=== PATIENT | female | born 1940 | race Caucasian/White ===

== ENCOUNTER 2023-05-01 21:54 | Inpatient (IN) | payer OTHER, SELFPAY ==
[2023-05-01] VITALS (7 sets, daily range): BP systolic 99–153; BP diastolic 58–108
[2023-05-01 13:17] LABS: % Basophils 0.4 % (0-2); % Immature Granulocytes 0.9 % (0-0.5); % Lymphocytes 6.9 % (20.5-51.1); % Monocytes 4.4 % (1.7-9.3); % Neutrophils 87.4 % (42.2-75.2); Absolute Basophils 0.1 10^3/uL (0-0.2); Absolute Immature Granulocytes 0.2 10^3/uL (0-0.05); Absolute Lymphocytes 1.5 10^3/uL (1.2-3.4); Absolute Neutrophils 18.9 10^3/uL (1.4-6.5); Hematocrit 28.3 % (37.0-47.0); Hemoglobin 9.7 g/dL (12.0-16.0); Mean Corp Hgb Conc. 34.3 g/dL (33.0-37.0); Mean Corpuscular Hgb 28.1 pg (27.0-31.0); Mean Platelet Volume 9.8 fL (7.4-10.4); Nucleated Red Blood Cells % 0 %; Platelet Count 449 10^3/uL (130-400); Red Blood Cell Count 3.45 10^6/uL (4.20-5.40); Red Cell Dist. Width 15.2 % (11.5-14.5); White Blood Cell Count 21.6 10^3/uL (4.8-10.8)
[2023-05-01 13:32] LABS: COVID-19 Antigen Negative (Negative)
[2023-05-01 13:42] LABS: Troponin I < 0.012 ng/ml
[2023-05-01 14:00] LABS: ALT (SGPT) 107 U/L (0-35); AST (SGOT) 207 U/L (14-36); Albumin 2.6 g/dl (3.5-5.0); Alkaline Phosphatase 336 U/L (38-126); Blood Urea Nitrogen 35 mg/dl (7-17); Calcium 8.2 mg/dl (8.4-10.2); Carbon Dioxide 19 mmol/L (22-30); Chloride 100 mmol/L (98-107); Glucose 157 mg/dl (70-99); Potassium 4.4 mmol/L (3.5-5.1); Sodium 128 mmol/L (135-145); Total Protein 5.8 g/dl (6.3-8.2); eGFR 45.19
--- NOTE | 2023-05-01 16:04 | ED.GENMED ---
History of Present Illness
General
Chief Complaint: Weakness
Source: patient
Time Seen by Provider: 05/01/23 15:32
Travel History
Have you had any contact with someone who has COVID-19?: No
Do you have any symptoms of coronavirus? Fever > 100 degrees, chills, cough, shortness of breath, sore throat, loss of taste or smell, muscle aches, or headache?: No
History of Present Illness
History of Present Illness:
82-year-old female presents to the emergency room complaining of generalized weakness, anorexia, chills and night sweats. Patient has been having the symptoms for the past several days. She denies shortness of breath or chest pain. She does have
a mild cough. She denies dysuria or frequency. Patient has not been vomiting but just has a nauseous feeling when she thinks about eating. No rash.
Phy Exam
Physical Exam
Physical Exam:
General: Awake, Alert, Oriented X3. No acute distress.
Vitals: unremarkable
Head: Atraumatic
Eyes: Pupils equal, EOMI
Throat: Airway intact, no exudates
Neck: Trachea midline
Lungs: Clear and equal b/l
Heart: Regular rate, no murmurs
Abd: Soft, Nontender, No pulsatile mass
Back: No CVA tenderness to percussion
Neuro: Nonfocal
Skin: Warm, dry, no rash
Extremities: pulses equal b/l, no edema
Course
Orders/Labs/Results
Orders:
Orders
05/01/23 12:57
Electrocardiogram (*1) Urgent
Reason for Study: Other
Other Reason for Exam: L shoulder pain
EKG- Treatment ONCE
05/01/23 13:08
COVID-19 Antigen Urgent
Source: Nasal Swab
Complete Blood Count/With Diff Urgent
Comprehensive Metabolic Panel Urgent
Ferritin Urgent
Comment: ADD ON
Folate Urgent
Comment: ADD ON
Iron Urgent
Comment: ADD ON
Serum Osmolality Urgent
Comment: ADD ON
TSH Reflex To Free T4 Urgent
Comment: ADD ON
Total Iron Binding Urgent
Comment: ADD ON
Troponin I Urgent
Vitamin B12 Urgent
Comment: ADD ON
Influenza A+B Rapid Molecular Urgent
CYNTHIA Source: Nasal Swab
Specimen Description:
05/01/23 16:02
0.9% Sodium Chloride 500 ml [Nss] 500 ml IV BOLUS
CR Chest - 2 Views Urgent
Comment:
Reason For Exam: cough,chills, weakness
05/01/23 16:24
Lactic Acid Urgent
Blood Culture Q30M
CYNTHIA Source: Blood/Venous
Specimen Description:
Blood Culture Q30M
CYNTHIA Source: Blood/Venous
Specimen Description:
05/01/23 16:35
Acetaminophen [Tylenol] 650 mg PO NOW STA
05/01/23 17:41
CT Abd/pel W Iv And Oral Contr Urgent
Comment:
Reason For Exam: fever, elevated lfts, vomiting
Iohexol [Omnipaque] See Protocol PO NOW STA
05/01/23 17:57
Osmolality, Random Urine Urgent
Date Specimen was Collected: 05/01/23
Time Specimen was Collected: 17:41
Comment: ADD ON
Urinalysis Reflex To Culture Urgent
Date Specimen was Collected: 05/01/23
Time Specimen was Collected: 17:41
Urine Microscopic Reflex Cult Urgent
Urine Sodium Urgent
Date Specimen was Collected: 05/01/23
Time Specimen was Collected: 17:41
Comment: ADD ON
05/01/23 21:00
CefTRIAXone [Rocephin] 1,000 mg IV NOW STA
MetroNIDAZOLE [Flagyl] 500 mg PO NOW STA
05/01/23 21:14
Add On- LAB Urgent
Tests Added?: tsh with free t4, urine na, urine osmo, serum osmo
05/01/23 21:33
Admit/Transfer Patient As Directed
Co-Sign Provider:
Level of Care: Inpatient admission
Assign to:: ICU
Physician / Group: alina adler
Diagnosis: sepsi 2/2 lg hepatic abcess, hypotension, hypoNa
Reason for Hospitalization: sepsi 2/2 lg hepatic abcess, hypotension, hypoNa
Expected length of stay greater than two midnights?: Yes
ELOS- Estimated Length of Stay in days: 4
I certify the patient meets the requirements for IP care: Yes
Code Status As Directed
Resuscitation Status: Full Code
05/01/23 21:41
Add On- LAB Urgent
Tests Added?: iron, tibc, ferritin, folate b12
05/01/23 22:00
Flush (0.9% Sodium Chloride) [Flush (Nss)] See Dose Instructions IV PER PROTOCOL
Lactated Ringers [Lr] 1,000 ml IV 1,000 mls/hr
05/01/23 22:27
BMP [Basic Metabolic Panel] Urgent
Abnormal Lab Results
05/01/23 05/01/23 05/01/23
13:08 16:24 17:57
WBC 21.6 H 10^3/uL
(4.8-10.8)
RBC 3.45 L 10^6/uL
(4.20-5.40)
Hgb 9.7 L g/dL
(12.0-16.0)
Hct 28.3 L %
(37.0-47.0)
RDW 15.2 H %
(11.5-14.5)
Plt Count 449 H 10^3/uL
(130-400)
Abs Immat Gran (auto) 0.2 H 10^3/uL
(0-0.05)
Absolute Neuts (auto) 18.9 H 10^3/uL
(1.4-6.5)
Absolute Monos (auto) 1.0 H 10^3/uL
(0.1-0.6)
Immature Gran % 0.9 H %
(0-0.5)
Neutrophils % 87.4 H %
(42.2-75.2)
Lymphocytes % 6.9 L %
(20.5-51.1)
Sodium 128 L mmol/L
(135-145)
Carbon Dioxide 19 L mmol/L
(22-30)
BUN 35 H mg/dl
(7-17)
Creatinine 1.2 H mg/dL
(0.6-1.0)
Glucose 157 H mg/dl
(70-99)
Lactic Acid 2.6 H mmol/L
(0.7-2.0)
Calcium 8.2 L mg/dl
(8.4-10.2)
AST 207 H U/L
(14-36)
ALT 107 H U/L
(0-35)
Alkaline Phosphatase 336 H U/L
(38-126)
Total Protein 5.8 L g/dl
(6.3-8.2)
Albumin 2.6 L g/dl
(3.5-5.0)
Urine Urobilinogen 2+ A
(Neg - 1+)
Leukocyte Esterase Rfl Trace A
(Negative)
Urine Bacteria (Reflex) Few A
(Negative)
Urine Sodium 21 L mmol/L
(30-90)
05/01/23 13:08
05/01/23 13:08
Vital Signs
Initial and Last Documented VS:
Initial Vital Signs
Temp Pulse Resp BP Pulse Ox
99.2 F 95 18 125/61 99
05/01/23 12:55 01/21/24 12:55 05/01/23 12:55 05/01/23 12:55 05/01/23 12:55
Last Documented Vital Signs
Temp Pulse Resp BP Pulse Ox
101.3 F H 120 23 153/108 96
05/01/23 16:27 05/01/23 22:48 05/01/23 22:48 05/01/23 22:48 05/01/23 22:48
MDM/Problems Addressed
Differential Diagnosis Includes:
pneumonia, uti, viral syndrome,
MDM/Problems Addressed:
Patient presents with malaise. She did not have a fever in triage but on repeat evaluation she does have a temperature of 101.3. White count is quite elevated at 21.6. LFTs show mild elevation. Lactate is normal. Labs show mild elevation of BUN
and creatinine. Mildly low sodium of 128. Patient given IV fluid bolus. Chest x-ray shows hiatal hernia but no infiltrate. Given fever and elevated LFTs a CT of abdomen pelvis was ordered. CT reveals a large hepatic abscess. This was discussed
with infectious disease who recommended Rocephin and oral Flagyl. This was ordered. Patient will be admitted to the hospital service.
*Radiology
Radiology exam reviewed: radiology read reviewed
*Pulse Oximetry
Patient hypoxic: no
*EKG
Interpreted by ED Provider?: Yes
Interpretation: normal
Heart Rate: 90
Rate: normal
Rhythm: sinus
Teague: normal axis
Interval: normal interval
QRS Pattern: normal QRS
Ischemia: no ischemia
*Clinical Investigator Interpretation
Rate: normal
Interpretation: normal
Rhythm: sinus
*Critical Care Note
Total Time (30-74mins, 75-104mins- exclusive of procedures): Not Applicable
ED Attending Note
-
Portions of this chart may have been created with voice recognition software.� Occasional wrong word or��sound alike� substitutions may have occurred due to the inherent limitations of voice recognition software.
Discharge Plan
Departure
Patient Disposition: Admit
Date of Disposition: 05/01/23
Time of Disposition: 21:02
Admit to: Med/Surg
Presentation/result/management discussed w/ accepting MD/DO: Hospitalist
Discharge Problem:
Hepatic abscess
Interventions
Interventions:
*Risk Screen - Suicide Last Done: 05/01/23 20:26
*General Assessment Last Done: 05/01/23 20:26
*Neglect/Abuse Screening Last Done: 05/01/23 20:26
*ED COVID-19 Vaccine History Last Done: 05/01/23 12:55
ED- Cardiac Assessment Last Done: 05/01/23 16:30
ED- Neurological Assessment Last Done: 05/01/23 16:30
ED- Pulmonary Assessment Last Done: 05/01/23 16:30
[2023-05-01] MEDS: NSS 500 IV (16:27)
[2023-05-01] MEDS: TYLENOL 650 MG PO (16:49)
[2023-05-01 17:08] LABS: Lactic Acid 2.6 mmol/L (0.7-2.0)
[2023-05-01] MEDS: OMNIPAQUE 50 ML PO (17:59)
[2023-05-01 18:33] LABS: Urine Albumin Negative (Neg - Trace); Urine Bilirubin Negative (Negative); Urine Character Clear (Clear); Urine Color Yellow; Urine Glucose Negative (Negative); Urine Ketone Negative (Negative); Urine Leukocyte Trace (Negative); Urine Nitrite Negative (Negative); Urine Occult Blood Negative (Negative); Urine Urobilinogen 2+ (Neg - 1+)
[2023-05-01 18:48] LABS: Urine Squamous Cell 26-30 /LPF (Few)
[2023-05-01 18:49] LABS: Urine Bacteria Few (Negative); Urine Red Blood Cell 0-2 /HPF (0-2)
--- NOTE | 2023-05-01 21:10 | HPS.HSE ---
Addendum entered and electronically signed by Francisco Li MD 05/01/23 21:44:
I saw and examined the patient.
The ENTERPRISE DATA ARCHITECT or PA's note was reviewed and I agree with the note.
Comment:
HPI
82F from home with HX HTN on Losartan, a glass of wine daily , seen at ER for evalaution of generalized weakness, anorexia, chills and night sweats for for the past several days.
ROS
She denies shortness of breath or chest pain.
POS mild cough.
No dysuria or frequency.
No vomiting but just has a nauseous
PHX: HTN
Reviewed VS: T 101.3 BP 100/60
PE
Gen: Not toxic looking
HEENT:anicteric
Neck: supple
Lungs: CTA
Cor: RRR S1 S2
Abdomen: Soft, Nontender, No pulsatile mass
CONCILIATOR: NFND
MS: no edema
Psych: aclm
Data
WCC 21
Hgb 9.7 - baseline 14s
Plt 450
Na 128
CO2 19
BUN 35
Cr 1.2 - baseline 0.8
GFR 45
AG 9
AST 207 ALT 107 AKP 336
NEG TPNI
NEG UA
BCx sent
CT Abd/pel W Iv And Oral Contr
1. LARGE 9.7 cm HEPATIC ABSCESS in the left lobe of the liver.
2. Mild hepatosplenomegaly.
3. LARGE PARAESOPHAGEAL HIATAL HERNIA with mesentero-axial positioning of the stomach in the hernia sac.
4. Very severe diverticulosis in the sigmoid colon.
5. Mild cardiomegaly.
ASSESSMENT & PLAN
Sepsis with hypotension
Large hepatic abscess at Lt lobe of liver
Abn transaminitis
Reactive thrombocytosis
Mild hepatosplenomegaly
Severe diverticulosis in the sigmoid colon.
- LR IVF
- IV CFTX and PO Metronidazole
- clear diet
- Trend CBC and VSS
- IR consult for drainage
- ID consulted
Hyponatremia suspect hypovolemic
Suspect pre renal TATA due to sepsis
AG 9
- Ur Na, Ur Osm , Sr Osm
- on LR IV
- Na q6h
Essential HTN
- Held Losartan due to hypotension
ETOH daily use ; suspect lo risk
- MSAS protocol for low risk
DVT Px: SCD
Full code
IMU
Original Note:
Family Physician
-
Family Physician: Yahaira Morgan
Chief Complaint
-
Generalized weakness, nausea, anorexia, chills night sweats
History of Present Illness
82-year-old female complaining of generalized weakness, nausea, anorexia, chills, night sweats for the past several days. In the ER she was noted to have
a temp of [address] abdomen showing a large 9.7 m hepatic abscess in the left
lobe of the liver. Patient denies any abdominal pain, vomiting, urinary symptoms, chest pain, palpitations, shortness of breath, cough. She does report 1 episode of diarrhea 5 days ago self resolved. She reports she drinks 170 ounce glass of wine
nightly and 1 to 2 glasses on the weekends. Other past medical history includes hypertension.
Medical History
Past Medical History
Past Medical History: Reports Other (Hypertension, alcohol use disorder)
Past Surgical History: Reports None
Social History
Tobacco: Non-smoker
Alcohol: Daily (7 ounce glass of wine and the 7 to 14 ounce glass of wine on Tuesday and Tuesday)
Drug: None
Personal:
Living: With Family ()
Employment: Retired
Family History
Family History: Other (Mother age 96 old age father age 77 unsure type of cancer)
Allergies / Home Medications
Allergies reflects when Allergies were last updated in [facility].
Home Medications with original date entered in [facility]
Allergy/Medication List:
Allergies
Allergy/AdvReac Type Severity Reaction Status Date / Time
No Known Allergies Allergy Unverified 05/01/23 12:56
Home Medications
losartan 50 mg PO DAILY 05/01/23
Review of Systems
-
History Source: Patient
A 12 point ROS was completed and negative except as noted: Yes
Constitutional: Reports Fever, Night Sweats and Chills
EENT: Denies Sore Throat or Runny Nose
Respiratory: Denies Cough or Trouble Breathing
Cardiac: Denies Chest Pain, Diaphoresis, Palpitations or Syncope
Abdomen/GI: Denies Abdominal Pain, Nausea, Vomiting, Diarrhea, Constipated, Bloody Stools or Black Stools
: Denies Dysuria, Frequency, Flank Pain, Incontinence, Difficulty Voiding or Urgency
Musculoskeletal: Denies Joint Pain or Edema
Skin: Denies Itching or Rash
Neurological: Denies Dizzy, Headache or Weakness
Endocrine: Reports No Symptoms
Hematologic/Lymphatic: Reports No Symptoms
Psych: Reports Calm
Physical Exam
Vital Signs
Vital Signs
Temp Pulse Resp BP Pulse Ox
101.3 F H 89 17 99/58 99
05/01/23 16:27 05/01/23 16:30 05/01/23 16:30 05/01/23 16:04 05/01/23 16:30
Physical Exam
General: Conversant, Fever and Chills; No Pain
HEENT: NormoCephalic, Anicteric, Moist mucous membranes, PERRLA, [place] Conjunctivae and No Ptosis
Respiratory: Clear; No Wheezes, Rales or Rhonchi
Cardiac: S1/S2 and Regular Rhythm; No Murmur, Rub, Gallop or Peripheral Edema
Breast: Deferred by me
GI: Soft, Non Tender, Non Distended, Normal Bowel Sounds and No Hepatosplenomegaly
Rectal: Deferred by Provider
Genito-urinary: Deferred by me
Musculoskeletal: No Clubbing, No Cyanosis and No Edema
Skin: Warm and Dry; No Rash or Jaundice
Neuro: AO x 3, No Motor Deficits, Nonfocal/grossly intact, Cranial Nerves Intact and No Sensory Deficits; No Slurred Speech, Facial Droop or Tremors
Psych: Calm
Laboratory Results
-
05/01/23 13:08
05/01/23 13:08
Laboratory Results
Lactic Acid 2.6 mmol/L (0.7-2.0) H 05/01/23 16:24
Total Bilirubin 1.0 mg/dl (0.2-1.3) 05/01/23 13:08
AST 207 U/L (14-36) H 05/01/23 13:08
ALT 107 U/L (0-35) H 05/01/23 13:08
Alkaline Phosphatase 336 U/L (38-126) H 05/01/23 13:08
Troponin I < 0.012 ng/ml 05/01/23 13:08
Data Reviewed
-
Diagnostic Radiology: Report Reviewed by me
CT Scan: Report Reviewed by me
Lab Data: Labs Reviewed by me
Impression/Plan
-
Impression/plan:
Admit to IMU
#Sepsis 2/2 large hepatic abscess with severe diverticulosis
#Acute transaminitis 2/2 to above
21.6 with left shift, 101.3F, HR 89 99/58
-IV sepsis bolus LR 1800 cc bolus
-Consult IR for abscess drainage with cultures
-Consult infectious disease
-IV Rocephin, Flagyl
-Blood cultures x 2-, follow lactic acid, follow CMP
CT abdomen pelvis:�
1. LARGE 9.7 cm HEPATIC ABSCESS in the left lobe of the liver.
2. � Mild hepatosplenomegaly.
3. � LARGE PARAESOPHAGEAL HIATAL HERNIA with mesentero-axial positioning of the stomach in the hernia sac.
4. � Very severe diverticulosis in the sigmoid colon.
5. � Mild cardiomegaly.
CXR: Large retrocardiac air-fluid level to left of midline differential includes large hiatal hernia versus large [place] hernia
#TATA in setting of sepsis
Creat 1.2 baseline 0.8 ( 11/29/2022)
-IV LR 2000 cc follow BMP
#Anemia normocytic
Hgb 9.7 baseline 14, PLT 449
-Check iron panel, B12, folate
- blood consent obtained and scanned to chart
#Hyponatremia Hypovolemic
NA 128
-Check TSH with T4 reflex, urine NA urine Osmo, serum Osmo
-Follow CMP
#Alcohol use disorder
1 glass wine 7 hours per night 1 to 2 glass wine on weekends
MSAs screen protocol
IV thiamine, IV folate
#HYpotension/ htn benign
/58
hold losartan due to hypotension
DVT prophylaxis
Scd's
Full code
[2023-05-01 21:37] LABS: Osmolality Serum 284 mOsm/kg (275-300)
[2023-05-01 21:37] LABS: Osmolality Urine 561 mOsm/kg (300-900)
[2023-05-01 21:50] LABS: Urine Sodium 21 mmol/L (30-90)
[2023-05-01] MEDS: FLAGYL 500 MG PO (22:01)
[2023-05-01] MEDS: ROCEPHIN 1000 MG IV (22:02)
[2023-05-01 22:17] LABS: TSH Reflex To Free T4 1.26 uIU/ml (0.47-4.68)
[2023-05-01] MEDS: LR 1000 IV (22:36)
[2023-05-01 22:51] LABS: Blood Urea Nitrogen 38 mg/dl (7-17); Carbon Dioxide 16 mmol/L (22-30); Chloride 99 mmol/L (98-107); Glucose 131 mg/dl (70-99); Sodium 126 mmol/L (135-145); eGFR 56.25
--- NOTE | 2023-05-01 22:53 | W.PN.UPDATE ---
Update Note
Progress Note Update
Desat 82 % while walking to BR
Non bloody watery diarrhea
Loring feverish
Tachypneic
S/P 1 L NS
BP 153/108
Suspect worsening sepsis concern for bacermia
- BCx upon admission
- check Lactate
- stool Cx
- De escalade IVF
- LOC: Upgrade to ICU.
-
[2023-05-01 22:58] LABS: Lactic Acid 5.3 mmol/L (0.7-2.0)
[2023-05-01 23:47] LABS: Folate 9.2 ng/ml (2.76-20); Vitamin B12 897 pg/ml (239-931)
[2023-05-02] VITALS (90 sets, daily range): BP systolic 60–151; BP diastolic 30–127; BMI 26.1
[2023-05-02 00:21] LABS: Iron 26 ug/dl (37-170)
[2023-05-02 00:32] LABS: Percent Saturation 13 % (20-50); Total Iron Binding Capacity 195 ug/dl (265-497)
--- NOTE | 2023-05-02 01:00 | PTCARENOTE ---
Patient received from ED, AAOx3, but drowsy. Sinus Tachycardia on monitor, rectal temp 104.4, blood pressure low. Lungs clear but diminished bibasilar, on 3L, unable to get pulse ox. Abdomen round with hyperactive sounds, incontinent of loose
stool. #20 g in right forearm and #18 g in LAC flushed and patent. CHG bath given. COOKER CLEANER notified of findings, orders received. Plan of care discussed, call pierre within reach
[2023-05-02] MEDS: OFIRMEV 100 IV (01:22)
[2023-05-02] MEDS: LEVOPHED 250 IV ×3 (01:27→14:10)
[2023-05-02] MEDS: NSS 500 IV ×2 (01:28→04:01)
[2023-05-02] MEDS: LR 1000 IV (01:42)
--- NOTE | 2023-05-02 01:47 | W.PN.SEPSIS ---
Sepsis
Vital Signs
Temp Pulse Resp BP Pulse Ox
104.2 F H 84 19 72/53 96
05/02/23 01:07 05/02/23 01:30 05/02/23 01:30 05/02/23 01:30 05/02/23 01:25
Physical Exam
Physical Exam:
A focused exam was performed after fluid resuscitation.
Capillary Refill
Bilateral Upper Extremity:
Joe Time: Less than 3 sec
Bilateral Lower Extremity:
Joe Time: Less than 3 sec
Pulse Evaluation
Bilateral Radial:
Pulse Evaluation: Present
Bilateral Dorsalis Pedis:
Pulse Evaluation: Present
[2023-05-02 03:07] LABS: INR 1.58; PT 19.2 Sec (11.4-14.6)
[2023-05-02 03:08] LABS: APTT 37.5 Sec (23.4-35.0)
[2023-05-02 03:16] LABS: Lactic Acid 5.9 mmol/L (0.7-2.0)
[2023-05-02 03:25] LABS: Creatine Phosphokinase 55 U/L (30-135); GGTP 179 U/L (12-43); Magnesium 1.9 mg/dl (1.6-2.3); Phosphorus 3.2 mg/dl (2.5-4.5)
[2023-05-02 03:35] LABS: Alcohol None Detected
[2023-05-02 03:36] LABS: B-Hydroxybutyrate 0.38 mmol/L (0.02-0.27)
--- NOTE | 2023-05-02 04:05 | PTCARENOTE ---
Patient reassessed, temp improving, titrating Levophed per order. Still unable to get a pulse ox, remains on 3L. Lung sounds unchanged. Labs noted, order received for additional fluid bolus. Patient repositioning self in bed
[2023-05-02 05:29] LABS: % Basophils 0.2 % (0-2); % Immature Granulocytes 5.3 % (0-0.5); % Lymphocytes 3.4 % (20.5-51.1); % Monocytes 4.6 % (1.7-9.3); % Neutrophils 86.5 % (42.2-75.2); Absolute Basophils 0.1 10^3/uL (0-0.2); Absolute Immature Granulocytes 1.6 10^3/uL (0-0.05); Absolute Monocytes 1.4 10^3/uL (0.1-0.6); Absolute Neutrophils 26.2 10^3/uL (1.4-6.5); Hemoglobin 7.7 g/dL (12.0-16.0); Mean Corpuscular Hgb 28.3 pg (27.0-31.0); Mean Corpuscular Volume 80.9 fL (81.0-99.0); Mean Platelet Volume 10.3 fL (7.4-10.4); Nucleated Red Blood Cells % 0 %; Platelet Count 359 10^3/uL (130-400); Red Blood Cell Count 2.72 10^6/uL (4.20-5.40); Red Cell Dist. Width 14.9 % (11.5-14.5); White Blood Cell Count 30.3 10^3/uL (4.8-10.8)
[2023-05-02] MEDS: FLAGYL 500 MG 100 IV ×3 (05:44→22:14)
[2023-05-02 05:55] LABS: Lactic Acid 4.6 mmol/L (0.7-2.0)
[2023-05-02 06:28] LABS: ALT (SGPT) 94 U/L (0-35); AST (SGOT) 186 U/L (14-36); Albumin 1.9 g/dl (3.5-5.0); Alkaline Phosphatase 367 U/L (38-126); Blood Urea Nitrogen 40 mg/dl (7-17); Calcium 7.2 mg/dl (8.4-10.2); Carbon Dioxide 14 mmol/L (22-30); Chloride 103 mmol/L (98-107); Estimated Creatinine Clearance 23 ml/min; Glucose 106 mg/dl (70-99); Magnesium 2.1 mg/dl (1.6-2.3); Potassium 4.4 mmol/L (3.5-5.1); Sodium 126 mmol/L (135-145); Total Bilirubin 1.2 mg/dl (0.2-1.3); Total Protein 4.4 g/dl (6.3-8.2); eGFR 34.58
--- NOTE | 2023-05-02 07:38 | W.PN.HOSP.TC ---
Today's Communication/Plan
-
NPO for IR
broaden abx for now
F/U ID recs, Nephrology recs, Wrapper Stitcher recs
needs PICC
wean levo as able
TTE
Assessment / Plan
Assessment / Plan
82-year-old woman with hx hypertension presents c/o generalized weakness, nausea, anorexia, chills x several days, noted to have a temp of [address] abdomen showing a large 9.7 m hepatic abscess in the left lobe of the liver.� � � � � � � � � �
� � � � � � � � � � � � � � � � � � � � � � � � � � � � � � � � � � � � � � � � � � � � � � � � � � � � � � � � � � � � � � � � � � � � � � � � � � � � � � � � � � � � � � � � � � � �
CT Abd/pel W Iv And Oral Contr
1. � LARGE 9.7 cm HEPATIC ABSCESS in the left lobe of the liver.
2. � Mild hepatosplenomegaly.
3. � LARGE PARAESOPHAGEAL HIATAL HERNIA with mesentero-axial positioning of the stomach in the hernia sac.
4. � Very severe diverticulosis in the sigmoid colon.
5. � Mild cardiomegaly.
Septic Shock
Large hepatic abscess at Lt lobe of liver
Abn transaminitis
Reactive thrombocytosis
Mild hepatosplenomegaly
- patient requiring Levophed overnight, up to 10
- for now will broaden antibiotics to IV Cefepime/Flagyl
- F/U further ID recs
- Wrapper Stitcher consult
- NPO for IR
Anion gap metabolic acidosis (corrected for low albumin)
Persistent elevated lactate
- AG explained by elevated lactate, taking longer to clear
-patient does not look volume down and received a significant amount of fluid
-she is on O2, unclear if slightly volume up? will obtain TTE
Hyponatremia
Na down to 126 post IVF resuscitation
-receiving IVF for sepsis
-unclear if slightly volume up now? obtain TTE as above
-F/U repeat urine studies today
-Nephrology consult
Acute Kidney Injury
-creatinine up to 1.5 from 1 post IVF likely 2/2 sepsis, early for effect from contrast
-bladder scan 300- will straight cath
-F/U repeat urine studies including urine creatinine
-Nephrology consult
Essential HTN
-hold SEWER BRICKLAYER Losartan
ETOH daily use ; suspect lo risk
- MSAS protocol for low risk
DVT Px: SCD
Full code
IMU
51 minutes spent on patient evaluation, medical decision making, coordination of care
Anticipated Discharge: > 48 hours
Subjective/Interval History
-
Date of Service: May 02, 2023
patient states she is feeling better, denies abdominal pain
shocked as to how this infection happened
Objective Data
-
Labs:
Laboratory Results
05/01/23 05/02/23 05/02/23
22:27 02:47 05:13
WBC 30.3 H
Hgb 7.7 L D
Hct 22.0 L
Plt Count 359 D
PT 19.2 H
INR 1.58
APTT 37.5 H
Sodium 126 L 126 L
Potassium 5.0 4.4
Chloride 99 103
Carbon Dioxide 16 L 14 L*
BUN 38 H 40 H
Creatinine 1.0 1.5 H
Glucose 131 H 106 H
Calcium 8.0 L 7.2 L
Total Bilirubin 1.2
AST 186 H
ALT 94 H
Alkaline Phosphatase 367 H
Vital Signs:
Vital Signs
Temp Pulse Resp BP Pulse Ox
98.7 F 84 24 129/112 96
05/02/23 07:33 05/02/23 05:45 05/02/23 05:45 05/02/23 05:45 05/02/23 00:25
I&O
05/01/23 05/02/23 05/03/23
06:59 06:59 06:59
Intake Total 2845.0 / 2845.0
Balance 2845.0 / 2845.0
Review of Systems
-
History Source: Patient
All other systems: Reviewed and negative
Physical Exam
-
General: No Apparent Distress and Conversant
HEENT: PERRLA
Respiratory: Clear to Auscultation; Negative Wheezes
Cardiac: Regular Rhythm, S1/S2 and JVD (possible?)
GI: Soft and Nontender
Musculoskeletal: No Edema
Skin: Warm and Dry; Negative Rash
Neuro: AO x 3
Psych: Calm
Data Reviewed
-
Diagnostic Radiology: Report Reviewed by me
Labs: Labs Reviewed by me
[2023-05-02] MEDS: THIAMINE INJECTION 200 MG IV ×2 (07:46→19:39)
[2023-05-02] MEDS: FOLVITE 1 MG PO (07:46)
[2023-05-02 08:50] LABS: Urine Albumin Trace (Neg - Trace); Urine Bilirubin Negative (Negative); Urine Character Clear (Clear); Urine Color Yellow; Urine Glucose Negative (Negative); Urine Ketone Negative (Negative); Urine Leukocyte Negative (Negative); Urine Nitrite Negative (Negative); Urine Occult Blood Negative (Negative); Urine Urobilinogen Negative (Neg - 1+)
--- NOTE | 2023-05-02 08:50 | PTCARENOTE ---
report received, assessments per work list. patient alert and oriented, denies pain, dyspnea. monitor nsr. Levophed per work list. lungs with basilar crackles, diminished. no cough. generalized trace anasarca. abdomen soft, distended, active bowel
sounds. remains on enhanced precautions, c diff pending. bladder scan per work list. Hospitalist at bedside, orders received. patient straight cath per order, specimen sent. call pierre in reach
[2023-05-02 08:58] LABS: NT-proBNP 2260 pg/ml
--- NOTE | 2023-05-02 09:09 | CON.INTV ---
Addendum entered and electronically signed by Mir Washington MD 05/05/23 09:33:
Critical care statement (patient seen and evaluated on 05/02/2023): A total of 40 minutes of critical care time was provided for this patient today. This includes management of unstable vital signs, evaluation of the patient at bedside, reviewing the
patient's pertinent medical records including radiographs, microbiology, laboratory evaluations, and discussion with primary team, consultants, pharmacy, nutrition, physical therapy, case management, charge nurse, critical care nursing, and
respiratory therapy.
Original Note:
Consultation
Consultation Request
Date/Time Consultation Requested: 05/02/2023 - 011
Date/Time Consultation Performed: 05/02/2023 0852
Requesting Provider: ISAEL Ace
Performing Provider: Dr. Washington
Reason for Consultation: Shock
Medical History
-
Chief Complaint: Weakness + chills
History of Present Illness:
82-year-old F with PMHx of HTN who p/w weakness, reduced PO intake, chills night sweats for few days. She also endorsed L-shoulder pain in thr ER thats been ongonig since last week. Pt febrile in the ER to 101.3F, tachypneic to 23, BP 109/61, HR
90 and SpO2 98% on RA. Pt hyponatremic to 128, Cr 1.2, lactate 2.6, WBC 21.6, Hb 9.7 and plt 449. UA had trace leukocyte esterase, and covid-[address] A/P showed a massive paraesophageal hiatal hernia containing the entire stomach,
also containing a small portion of the transverse colon within the hiatal hernia. There is an irregualr shaped multiseptated hepatic abscess of the left lower lobe of the liver measuring 7.2cm x 9.5cm x 9.7cm. The GB wall is also diffusely
thickened (mild) withotu abnormal distention, and no biliary distention seen. Pt given 500cc bolus, tylenol and ABx with rocephin + flagyl. Pt admitted to hospitalist service, and pt was hypotensive requiring vasopressors, hence pt admitted to
ICU for further care. Critical care services consulted for additional recommendations/management.
Pt seen this AM. Awake, alert. On levophed at 8mcg/min, SBP in 110s. Pt has no complaints.
PMHx: HTN
PSHx: No past surgeries
Past Medical History
Past Medical History: Other (above as per HPI)
Past Surgical History: None
Social History
Tobacco: Non-smoker
Alcohol: Daily
Drug: None
Personal:
Living: With Family
Family History
Family History: Cancer (father - unknown type)
Allergies / Home Medications
Allergies
Allergy/AdvReac Type Severity Reaction Status Date / Time
No Known Allergies Allergy Unverified 05/01/23 12:56
Home Medications
Medication Instructions Recorded Confirmed Last Taken Type
losartan 50 mg PO DAILY 05/01/23 05/01/23 05/01/23 09:00 History
Review of Systems
-
History Source: Patient
All other systems: Negative unless noted
Vitals / Labs / Diagnostic Testing
Vital Signs
Temp Pulse Resp BP Pulse Ox
98.7 F 79 21 117/83 98
05/02/23 07:33 05/02/23 08:45 05/02/23 08:45 05/02/23 08:45 05/02/23 08:45
Laboratory Results
05/02/23
02:47
PT 19.2 H
INR 1.58
APTT 37.5 H
Microbiology
05/01/23 23:20 Feces/Stool C. difficile GDH Antigen & Toxins - Final
Negative for toxigenic C.difficile
05/01/23 13:08 Nasal Swab Influenza Types A & B (RADHA) - Final
Negative for Influenza A & B, NAAT
Negative results must be combined with clinical observations
and patient history.
Nucleic Acid Amplification test (NAAT)performed on the
[employer] platform.
Diagnostic Testing:
Physical Exam
-
HEENT: Normocephalic and Anicteric
Cardiovascular: S1/S2
Respiratory: Clear and Wheeze (n)
GI: Soft, Non Distended, Non Tender and Normal Bowel Sounds
Neurology: Awake, Alert and Tremors (n)
Skin: Warm and Dry
General: Comfortable and Chills (n)
Assessment
-
Assessment: 82-year-old F with PMHx of HTN who p/w weakness, reduced PO intake, chills night sweats for few days. She also endorsed L-shoulder pain in thr ER thats been ongonig since last week. Pt febrile in the ER to 101.3F, tachypneic to 23,
BP 109/61, HR 90 and SpO2 98% on RA. Pt hyponatremic to 128, Cr 1.2, lactate 2.6, WBC 21.6, Hb 9.7 and plt 449. UA had trace leukocyte esterase, and covid-[address] A/P showed a massive paraesophageal hiatal hernia containing the
entire stomach, also containing a small portion of the transverse colon within the hiatal hernia. There is an irregualr shaped multiseptated hepatic abscess of the left lower lobe of the liver measuring 7.2cm x 9.5cm x 9.7cm. The GB wall is also
diffusely thickened (mild) withotu abnormal distention, and no biliary distention seen. Pt given 500cc bolus, tylenol and ABx with rocephin + flagyl. Pt admitted to hospitalist service, and pt was hypotensive requiring vasopressors, hence pt
admitted to ICU for further care. Critical care services consulted for additional recommendations/management.
Impression:
#Septic shock due to hepatic abscess
#Hyponatremia
#Acute kidney injury - likely ATN in setting of shock
#Lactiac acidosis
#Anemia - due to AOCD with elevated ferritin and low TIBC despite low Fe-saturation levels
#Transaminitis - due to shock state in setting of hepatic abscess
#Paraesophageal hiatal hernia
#Alcohol use disorder
Plan:
- Antibiotics - currently on cefepime + flagyl - suspect may need extended ABx course. Would give at least 14 day course now and defer official total days to ID
- for IR drainage today of liver abscess
- Avoid NG tube as this could cause local perforation at paraesophageal hiatal hernia
- Trend serum Na with avoidance of over-correcting - goal correction of serum Na of <8-10mmol/L in 24 hrs, and correction of <16-18mmol/L in 48 hrs
- Continue vasopressors and maintain MAP >65; clear liquid diet for now and once pressor requirements are stable for >24 hrs then will advance diet
- If not off pressors by tomorrow then start midodrine
- Check random cortisol and if <19 then start stress dose steroids
- trend lactate levels until <2mmol/L
- transfuse if needed to keep Hb>7, plt>20k
- Thiamine, folate and MVN; MSAS
- Replete K>3.5, Mg>1.8, PO4>3
- Maintain euglycemia with goal BG 140-180mg/dL
-DVT ppx
Patient seen and examined on 05/02/2023.
Data:
CT Abd/Pelvis with IV and PO contrast 05-01-2023:
Impression:
1. � LARGE 9.7 cm HEPATIC ABSCESS in the left lobe of the liver.
2. � Mild hepatosplenomegaly.
3. � LARGE PARAESOPHAGEAL HIATAL HERNIA with mesentero-axial positioning of the stomach in the hernia sac.
4. � Very severe diverticulosis in the sigmoid colon.
5. � Mild cardiomegaly.
CXR 05-01-2023:
There is a large retrocardiac air-fluid level to the left of midline, the differential includes a large hiatal hernia versus a large left Bochdalek hernia.
Minimal atelectasis on the left.
[2023-05-02 09:51] LABS: Lactic Acid 2.4 mmol/L (0.7-2.0)
[2023-05-02] MEDS: STERILE WATER FOR INJECTION 10 ML IV ×2 (10:09→22:14)
[2023-05-02] MEDS: MAXIPIME 1000 MG IV ×2 (10:10→22:14)
[2023-05-02 10:23] LABS: Osmolality Urine 254 mOsm/kg (300-900)
--- NOTE | 2023-05-02 10:25 | CON.ID ---
Consultation
-
Date/Time Consultation Requested: May 01, 20236
Date/Time Consultation Performed: May 02, 2023 1030
Requesting Provider: Dr.Erica Cortez
Performing Provider: Dr. Dianna Winters
Reason for Consultation: Liver abscess
Chief Complaint / Past History
Chief Complaint
Weakness, chills
History of Present Illness
83-year-old female with history of hypertension, who developed weakness and poor appetite approximately 1 week ago. She had chills and sweats. No nausea, vomiting or abdominal pain. Had 1 episode of diarrhea. She did not improve and therefore
came to the ER yesterday May 01. White count was 21.6. LFTs noted to be elevated acutely. Fever up to 104. Patient TATA. She had episode of diarrhea in the ER with low blood pressure requiring transient Levophed overnight. CAT scan of the
abdomen pelvis showed a large liver abscess. Stool for C. difficile negative. Patient reports she is feeling a bit better today. She reports no longer requiring colonoscopy due to age. No history of diverticulitis. No recent travel history. No
unintentional weight loss. No odynophagia or dysphagia.
Past History
Additional Past Medical History:
HTN
Allergy History:
No Known Allergies Allergy (Unverified 05/01/23 12:56)
Medications Reviewed: Yes
Current Antibiotics:
cefepime (d1)
metronidazole (d2)
Social History
Tobacco: Non-Smoker
Alcohol: Daily (glass of wine)
Drug: None
Personal:
Family History
Family History: Not Pertinent
Review of Systems
Review of Systems
General: Fever, Chills and Change in Appetite
HEENT: Negative Stiff Neck, Sinus Problems, Headache or Pharyngitis
Cardiovascular: Negative Chest Pain, Dyspnea, Edema or Palpitations
Respiratory: Negative Dyspnea or Cough
Gasteroenterology: Negative Weight Loss
Genital / Urological: Negative Dysuria or Flank Pain
Endocrine: Weakness and Fatigue
Musculoskeletal: Negative Arthralgias
Neurological: Negative Headache or Dizziness
All systems: All other systems were reviewed and were negative
Vital Signs
Temp Pulse Resp BP Pulse Ox
98.7 F 74 21 123/81 99
05/02/23 07:33 05/02/23 10:15 05/02/23 10:15 05/02/23 10:15 05/02/23 10:23
Selected Entries
05/02/23
00:45
Temp 104.2 F H
Physical Exam
Physical Exam
Constitutional: No Acute Distress and Comfortable
Head: Other (No frontal or maxillary sinus tenderness)
Eyes: No Conjunctival Hemorrhage and Sclera Anicteric
Pharynx: Benign
Cardiovascular: Regular Rate and S1/S2
Pulmonary: Clear
Gastrointestinal: Soft, Non Tender, Non Distended and Normal Bowel Sounds
Genito-Urinary: Negative CVA Tenderness
Extremities: Negative Edema
Neurological: AO x 3
Lab / Diagnostic Study Results
Abs Immat Gran (auto) 1.6 10^3/uL (0-0.05) H 05/02/23 05:13
Absolute Neuts (auto) 26.2 10^3/uL (1.4-6.5) H 05/02/23 05:13
Absolute Lymphs (auto) 1.0 10^3/uL (1.2-3.4) L 05/02/23 05:13
Absolute Monos (auto) 1.4 10^3/uL (0.1-0.6) H 05/02/23 05:13
Absolute Basos (auto) 0.1 10^3/uL (0-0.2) 05/02/23 05:13
Immature Gran % 5.3 % (0-0.5) H 05/02/23 05:13
Neutrophils % 86.5 % (42.2-75.2) H 05/02/23 05:13
Lymphocytes % 3.4 % (20.5-51.1) L 05/02/23 05:13
Monocytes % 4.6 % (1.7-9.3) 05/02/23 05:13
Eosinophils % 0.0 % (0-6) 05/02/23 05:13
Basophils % 0.2 % (0-2) 05/02/23 05:13
PT 19.2 Sec (11.4-14.6) H 05/02/23 02:47
INR 1.58 05/02/23 02:47
Lactic Acid 2.4 mmol/L (0.7-2.0) H 05/02/23 09:27
Ur Squamous Epith Cells 26-30 /LPF (Few) 05/01/23 17:57
Microbiology Results
Micro:
05/01/23 16:24 Blood Culture - Pending
Blood/Venous
05/01/23 23:20 C. difficile GDH Antigen & Toxins - Final
Feces/Stool Negative for toxigenic C.difficile
05/01/23 23:20 Salmonella/Shigella Culture - Pending
Feces/Stool Campylobacter Culture - Pending
Shiga Toxin Test - Pending
Stool Leukocytes - Pending
05/01/23 16:24 Blood Culture - Pending
Blood/Venous
05/01/23 13:08 Influenza Types A & B (RADHA) - Final
Nasal Swab Negative for Influenza A & B, NAAT
Negative results must be combined with clinical observations
and patient history.
Nucleic Acid Amplification test (NAAT)performed on the
[employer] platform.
05/01/23 CT a/p with IV and oral contrast: LARGE 9.7 cm HEPATIC ABSCESS in the left lobe of the liver. LARGE PARAESOPHAGEAL HIATAL HERNIA with mesentero-axial positioning of the stomach in the hernia sac. Very severe diverticulosis in the sigmoid
colon.
05/01/23 CXR: There is a large retrocardiac air-fluid level to the left of midline, the differential includes a large hiatal hernia versus a large left Bochdalek hernia.
Assessment / Plan
# Hepatic abscess
# Severe sepsis due to liver abscess
# Elevated transaminases
# TATA
- Unclear source of liver abscess; she does have severe diverticulosis
- Agree with IR drainage of abscess - send aerobic, anaerobic, fungal cultures, and histology.
-Agree with cefepime and metronidazole for now.
- Trend fever and leukocytosis.
[2023-05-02 10:41] LABS: Urine Sodium 10 mmol/L (30-90)
--- NOTE | 2023-05-02 11:03 | CON.MD ---
Consultation - Medical
-
IMP:
Septic Shock
Large hepatic abscess at Lt lobe of liver
Abn transaminitis
Mild hepatosplenomegaly
Anion gap metabolic acidosis (corrected for low albumin)
elevated lactate
Hyponatremia
Acute Kidney Injury
Anemia
Essential HTN
ETOH daily use
Diverticulosis
Large paraesophageal hiatal hernia
Plan:
A/w gen weakness,chills-found large liver abscess on CT
septic shock on pressors , titrate for MAP>65
abx per ID adjust renally
TATA-likely prerenal, +s/p contrast on 04/12, bland UA and U na low at 10
L acidosis improving, met acidosis worse will change to bicarb IVF,
monitor UOP . follow bladder scan 350cc and no hydro on CT
vol status seem stable though high BNP in setting of TATA
hyponatremia ADH mediated in acute illness, U osmo 254, normal TSH
start FR 48ounces/day once starts PO
consider 3% saline if sodium worsens later today
monitor h/h, found fe def-will await for all the cxs to result before adding iV Fe
avoid nephrotoxins and ARB
[id number]
[2023-05-02] MEDS: SODIUM BICARBONATE 1150 MEQ IV (12:10)
--- NOTE | 2023-05-02 12:43 | PTCARENOTE ---
reassessed. VAT RN art bedside, placed PICC, cxr taken, report pending. IVF changed to fluids with bicarb. levophed per work list. patient unable to void on bedpan. assist to bedside commode, voided ambre urine. post void residual as per work list.
[2023-05-02 13:33] LABS: Lactic Acid 2.4 mmol/L (0.7-2.0)
--- NOTE | 2023-05-02 14:46 | PTCARENOTE ---
transported to IR, hand off report to IR RN
[2023-05-02 16:11] LABS: Blood Urea Nitrogen 35 mg/dl (7-17); Calcium 7.1 mg/dl (8.4-10.2); Carbon Dioxide 18 mmol/L (22-30); Chloride 105 mmol/L (98-107); Estimated Creatinine Clearance 25 ml/min; Glucose 141 mg/dl (70-99); Potassium 4.2 mmol/L (3.5-5.1); Sodium 130 mmol/L (135-145); eGFR 37.56
--- NOTE | 2023-05-02 16:29 | W.PN.UPDATE ---
Update Note
Progress Note Update
Procedure: liver abscess drain
- US guided liver abscess drain. 10F
- 200 mL of brown purulent fluid aspirated. Sample sent
- Will likely require repeat imaging in 2-3 days to reevalute size and extent of abscess. May need drain reposition/upsize.
--- NOTE | 2023-05-02 17:17 | PTCARENOTE ---
Addendum entered by Lor Bai RN 05/02/23 18:30:
Dr Winters updated by tiger text regarding positive blood cultures. pain improving slowly post tylenol. tolerated clear liquids. weaning levophed per work list. spouse at bedside
Original Note:
received from IR, reassessed. crackles bilateral bases. pulse oximeter 94 on room air. patient drowsy,c/o right shoulder discomfort. right abdomen NOAH in place, draining thick do purulent fluid
[2023-05-02] MEDS: TYLENOL 650 MG PO (17:23)
--- NOTE | 2023-05-02 18:54 | PTCARENOTE ---
pain in shoulder relieved, however patient now c/o discomfort at insertion site of drain. [employer] De[employer] Operator ISAEL updated. orders pending. report to oncoming ALEXYS
[2023-05-02] MEDS: DILAUDID 0.25 MG IV (19:39)
--- NOTE | 2023-05-02 20:00 | PTCARENOTE ---
Patient received in bed, AAOX3, complaining of right shoulder pain, medicated per JUN. NSR on monitor, afebrile, blood pressure as documented. Palpable pulses throughout, trace anasarca noted. Knee high SCDs maintained. Lungs diminished
bibasilar, pulse ox 93% on room air. Abdomen round with positive bowel sounds. RUQ NOAH drain with purulent drainage. RDL PICC with IVF with Bicarb gtt and Levophed gtt infusing as documented. Larm PIVs flushed and patent. Plan of care discussed,
call pierre within reach
--- NOTE | 2023-05-02 23:24 | PTCARENOTE ---
Patient OOB with assist x1 to BSC, voided. No other changes in assessment
[2023-05-03] VITALS (52 sets, daily range): BP systolic 89–120; BP diastolic 58–95; PULSE 80–82; O2SAT 96; BMI 27.0
--- NOTE | 2023-05-03 04:00 | PTCARENOTE ---
pt reassessed, VSS, gtts continued for BP support. No other changed in assessment at this time. See MAR for medication administrations. turning Independently.
[2023-05-03 05:34] LABS: Lactic Acid 1.1 mmol/L (0.7-2.0)
[2023-05-03 05:35] LABS: ALT (SGPT) 106 U/L (0-35); AST (SGOT) 144 U/L (14-36); Albumin 1.9 g/dl (3.5-5.0); Alkaline Phosphatase 276 U/L (38-126); Blood Urea Nitrogen 29 mg/dl (7-17); Calcium 7.2 mg/dl (8.4-10.2); Carbon Dioxide 22 mmol/L (22-30); Chloride 103 mmol/L (98-107); Estimated Creatinine Clearance 34 ml/min; Glucose 114 mg/dl (70-99); Magnesium 2.1 mg/dl (1.6-2.3); Phosphorus 3.4 mg/dl (2.5-4.5); Potassium 3.7 mmol/L (3.5-5.1); Sodium 133 mmol/L (135-145); Total Protein 4.3 g/dl (6.3-8.2); eGFR 56.25
[2023-05-03 05:41] LABS: Hematocrit 24.2 % (37.0-47.0); Hemoglobin 8.6 g/dL (12.0-16.0); Mean Corp Hgb Conc. 35.5 g/dL (33.0-37.0); Mean Corpuscular Hgb 28.4 pg (27.0-31.0); Mean Corpuscular Volume 79.9 fL (81.0-99.0); Platelet Count 370 10^3/uL (130-400); Red Blood Cell Count 3.03 10^6/uL (4.20-5.40); Red Cell Dist. Width 14.8 % (11.5-14.5); White Blood Cell Count 25.7 10^3/uL (4.8-10.8)
[2023-05-03] MEDS: SODIUM BICARBONATE 1150 MEQ IV (05:51)
[2023-05-03] MEDS: LEVOPHED 250 IV (05:53)
[2023-05-03] MEDS: FLAGYL 500 MG 100 IV (05:53)
[2023-05-03 06:00] LABS: Procalcitonin 72.32 ng/ml (0.0-0.25)
[2023-05-03 06:15] LABS: Cortisol, Random 22.4 ug/dl
[2023-05-03 07:08] LABS: Absolute Neutrophils -Man Diff 22.8 10^3/uL (1.4-6.5); Band Neutrophils 11 % (0-3); Eosinophils 1 % (0-6); Lymphocytes 7 % (20-51); Monocytes 3 % (2-9); Segmented Neutrophils 78 % (42-75)
[2023-05-03 07:10] LABS: Normal RBC Morphology Yes; Platelets Checked Yes; Total Cells Counted 100
[2023-05-03] MEDS: FOLVITE 1 MG PO (07:50)
[2023-05-03] MEDS: THIAMINE INJECTION 200 MG IV (07:50)
--- NOTE | 2023-05-03 07:53 | W.PN.HOSP.TC ---
Today's Communication/Plan
-
weaning levophed
IV antibiotics
F/U specialist recs
Assessment / Plan
Assessment / Plan
82-year-old woman with hx hypertension presents c/o generalized weakness, nausea, anorexia, chills x several days, noted to have a temp of [address] abdomen showing a large 9.7 m hepatic abscess in the left lobe of the liver.� � � � � � � � � �
� � � � � � � � � � � � � � � � � � � � � � � � � � � � � � � � � � � � � � � � � � � � � � � � � � � � � � � � � � � � � � � � � � � � � � � � � � � � � � � � � � � � � � � � � � � �
CT Abd/pel W Iv And Oral Contr
1. � LARGE 9.7 cm HEPATIC ABSCESS in the left lobe of the liver.
2. � Mild hepatosplenomegaly.
3. � LARGE PARAESOPHAGEAL HIATAL HERNIA with mesentero-axial positioning of the stomach in the hernia sac.
4. � Very severe diverticulosis in the sigmoid colon.
5. � Mild cardiomegaly.
Septic Shock
Large hepatic abscess at Lt lobe of liver
Abn transaminitis
Reactive thrombocytosis
Mild hepatosplenomegaly
- weaning down levophed
- continue antibiotics to IV Cefepime/Flagyl
- s/p IR guided drainage - F/U cultures
- appreciate ID
- appreciate [employer] Worker
- continue clears, patient states wants to continue clears, doesn't have an appetite
Anion gap metabolic acidosis (corrected for low albumin)
Persistent elevated lactate
-labs improved this AM, lactic acidosis resolved
-sodium bicarb initiated by renal on 05/02
Hyponatremia
-resolved this AM with more IVF
-appreciate renal
Acute Kidney Injury
-resolved with further fluids
-appreciate renal
Essential HTN
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
ETOH daily use ; suspect lo risk
- MSAS protocol for low risk
DVT Px: SCD
Full code
IMU
51 minutes spent on patient evaluation, medical decision making, coordination of care
Anticipated Discharge: > 48 hours
Subjective/Interval History
-
Date of Service: May 03, 2023
feeling well
had shoulder pain over night resolved
no fevers/chills
weaning levophed
Objective Data
-
Labs:
Laboratory Results
05/03/23
05:08
WBC 25.7 H
Hgb 8.6 L
Hct 24.2 L
Plt Count 370
Sodium 133 L
Potassium 3.7
Chloride 103
Carbon Dioxide 22
BUN 29 H
Creatinine 1.0
Glucose 114 H
Calcium 7.2 L
Total Bilirubin 1.0
AST 144 H
ALT 106 H
Alkaline Phosphatase 276 H
Vital Signs:
Vital Signs
Temp Pulse Resp BP Pulse Ox
98.6 F 81 27 114/73 92
05/03/23 03:45 05/03/23 07:30 05/03/23 07:30 05/03/23 07:30 05/03/23 07:15
I&O
05/02/23 05/03/23 05/04/23
06:59 06:59 06:59
Intake Total 2845.0 / 2962.5 2422.6 / 2547.6 125 / 125
Output Total 1939 / 1939
Balance 2845.0 / 2962.5 482.6 / 607.6 125 / 125
Review of Systems
-
History Source: Patient
All other systems: Reviewed and negative
Physical Exam
-
General: No Apparent Distress and Conversant
HEENT: PERRLA
Respiratory: Clear to Auscultation; Negative Wheezes
Cardiac: Regular Rhythm and S1/S2
GI: Soft, Nontender and Other (NOAH drain)
Musculoskeletal: No Edema
Skin: Warm and Dry; Negative Rash
Neuro: AO x 3
Psych: Calm
Data Reviewed
-
Diagnostic Radiology: Report Reviewed by me
Labs: Labs Reviewed by me
--- NOTE | 2023-05-03 08:02 | W.PN.INTV ---
Today's Communication / Plan
Recommendations
Abx as per ID
DC MSAS as not at risk for EtOH WD
Up OOB as tolerated
Re-image with repeat CT A/P in 24-48 hrs to re-assess liver abscess, as per IR
Outpatient management of her severe paraesophageal hernia which contains a small portion of her transverse colon
Stable for downgrade out of ICU to telemetry - Payroll Benefits Administrator/pulmonary service will sign off. Please re-consult if respiratory issues develop or if there are any additional questions/concerns
Assessment
-
Assessment: 82-year-old F with PMHx of HTN who p/w weakness, reduced PO intake, chills night sweats for few days. She also endorsed L-shoulder pain in thr ER thats been ongonig since last week. Pt febrile in the ER to 101.3F, tachypneic to 23,
BP 109/61, HR 90 and SpO2 98% on RA. Pt hyponatremic to 128, Cr 1.2, lactate 2.6, WBC 21.6, Hb 9.7 and plt 449. UA had trace leukocyte esterase, and covid-[address] A/P showed a massive paraesophageal hiatal hernia containing the
entire stomach, also containing a small portion of the transverse colon within the hiatal hernia. There is an irregualr shaped multiseptated hepatic abscess of the left lower lobe of the liver measuring 7.2cm x 9.5cm x 9.7cm. The GB wall is also
diffusely thickened (mild) withotu abnormal distention, and no biliary distention seen. Pt given 500cc bolus, tylenol and ABx with rocephin + flagyl. Pt admitted to hospitalist service, and pt was hypotensive requiring vasopressors, hence pt
admitted to ICU for further care. Critical care services consulted for additional recommendations/management.
Patient underwent ultrasound-guided liver abscess drain on 05/02, and has continued to be managed in the ICU. Was weaned off of vasopressors on 05/03/2023 and is now ready for downgrade out of the ICU.
Impression:
#Septic shock due to hepatic abscess s/p IR drain (05/02/2023) with Cx growing GNR and Group F strept - shock state now resolved
#Hyponatremia -improving
#Acute kidney injury - likely ATN in setting of shock - TATA improving
#Lactic acidosis - resolved
#Anemia - due to AOCD with elevated ferritin and low TIBC despite low Fe-saturation levels
#Transaminitis - due to shock state in setting of hepatic abscess - LFTs are stable/improving
#Paraesophageal hiatal hernia without GOO and small portion of transfer colon is within the hiatal hernia
#Alcohol use disorder - not currently in withdrawal
Plan:
- Antibiotics - currently on cefepime + flagyl - suspect may need extended ABx course. Would give at least 14 day course now and defer official total days to ID
- s/p IR drainage on 05/02/2023 --> continue to monitor output from bulb and repeat CT A/P in 24-48 hrs as per IR to reevaluate size/extent of abscess
- Avoid NG tube as this could cause local perforation at paraesophageal hiatal hernia; considering this hernia is severe and contains part of her large colon, she should be evaluated for correction and this can be done as an outpatient. I advised
her to follow-up with gastroenterology versus surgery (I presume bariatric vs general)
- Trend serum Na with avoidance of over-correcting - goal correction of serum Na of <8-10mmol/L in 24 hrs, and correction of <16-18mmol/L in 48 hrs
- Maintain MAP >65
- transfuse if needed to keep Hb>7, plt>20k
- Thiamine, folate and MVN; patient not at risk for alcohol withdrawal --> I will DC MSAS
- Replete K>3.5, Mg>1.8, PO4>3
- Maintain euglycemia with goal BG 140-180mg/dL
- DVT ppx
Dispo: Patient is stable for downgrade out of ICU to telemetry. Payroll Benefits Administrator/pulmonary service will sign off. Please re-consult if respiratory issues develop or if there are any additional questions/concerns. Thank you for allowing us to be
involved in the care of this patient.
Data:
CT Abd/Pelvis with IV and PO contrast 05-01-2023:
Impression:
1. � LARGE 9.7 cm HEPATIC ABSCESS in the left lobe of the liver.
2. � Mild hepatosplenomegaly.
3. � LARGE PARAESOPHAGEAL HIATAL HERNIA with mesentero-axial positioning of the stomach in the hernia sac.
4. � Very severe diverticulosis in the sigmoid colon.
5. � Mild cardiomegaly.
CXR 05-01-2023:
There is a large retrocardiac air-fluid level to the left of midline, the differential includes a large hiatal hernia versus a large left Bochdalek hernia.
Minimal atelectasis on the left.
Subjective Dataa
Subjective Data
Date of Service:
Date of Service: May 03, 2023
Chief Complaint: Payroll Benefits Administrator Follow Up
Subjective:
Pt seen this AM. Underwent IR drainage last night. Was weaned off levo about an hour ago and was at 4mcg/min at that time (~930AM). She is walking around unit in [facility]. We discussed her CAT scan findings including the liver abscess and her
paraesophageal hiatal hernia. She denies any difficulty swallowing food, difficulty eating, taking medications and she has not ever been told in the past that she has a hiatal hernia. She does feel well overall and is eager to go home.
Review of Systems
General: Other (12 point ROS performed and is negative unless mentioned above.)
Objective Data
Data Reviewed
Vital Signs / I&O / Oxygen:
Vital Signs
Temp Pulse Resp BP Pulse Ox
98.6 F 80 26 108/67 91
05/03/23 08:06 05/03/23 09:30 05/03/23 09:30 05/03/23 09:30 05/03/23 09:30
Intake and Output
05/02/23 05/03/23 05/04/23
06:59 06:59 06:59
Intake Total 2845.0 / 2962.5 2422.6 / 2547.6 274.3 / 274.3
Output Total 1939 / 1939 35 / 35
Balance 2845.0 / 2962.5 482.6 / 607.6 239.3 / 239.3
SaO2 91
Nasal Cannula flow liters per 2
minute
Physical Exam
General: Respiratory Distress (negative), Comfortable and Chills (negative)
HEENT: Normocephalic and Anicteric
Cardiovascular: S1-S2, Murmur (negative) and Peripheral Edema (negative)
Respiratory: Clear, Wheeze (negative), Crackles (negative) and Rhonchi (negative)
GI: Soft, Non Distended and Other (NOAH-drain over RUQ with cloudy green fluid seen inside bulb)
Neurology: AO x 3 and Tremors (negative)
Skin: Warm, Dry and Jaundice (negative)
Labs/Micro/Reports
Lab Data
05/03/23 05:08
05/03/23 05:08
Microbiology
05/01/23 16:24 Blood/Venous Blood Culture - Preliminary
Positive culture in progress
05/01/23 16:24 Blood/Venous Gram Stain - Preliminary
05/02/23 16:20 Abscess Gram Stain - Preliminary
05/01/23 16:24 Blood/Venous Blood Culture - Preliminary
Positive culture in progress
05/01/23 16:24 Blood/Venous Gram Stain - Preliminary
05/02/23 16:20 Abscess Fungal Culture - Preliminary
Culture in progress.
Positive cultures are reported as soon as detected.
Final report to follow in four to five weeks.
05/01/23 23:20 Feces/Stool Stool Leukocytes - Final
05/01/23 23:20 Feces/Stool C. difficile GDH Antigen & Toxins - Final
Negative for toxigenic C.difficile
05/01/23 13:08 Nasal Swab Influenza Types A & B (RADHA) - Final
Negative for Influenza A & B, NAAT
Negative results must be combined with clinical observations
and patient history.
Nucleic Acid Amplification test (NAAT)performed on the
[employer] platform.
--- NOTE | 2023-05-03 08:30 | PTCARENOTE ---
recd pt, handoff at bedside, levophed as noted 4 mcg/min, MAPs greater than goal. In good spirits. assessed. NOAH drain R abd purulent drainage, irrigated as ordered, emptied. Seen by Dr Cortez. tolerating room air, appetite poor, denies hunger
pains. Aware of plans for the day.
[2023-05-03] MEDS: VISBIOME 1 CAP PO (08:40)
--- NOTE | 2023-05-03 09:04 | W.PN.ID1 ---
Date of Service
Date of Service: May 03, 2023
Today's Communication
Continue cefepime/metronidazole.
Assessment / Plan
# Hepatic abscess
# GNR bacteremia due to liver abscess
# Severe sepsis due to liver abscess, improving
# Elevated transaminases
# TATA resolving
- Unclear source of liver abscess; she does have severe diverticulosis. Eventual outpatient colonoscopy.
- 05/02/22 s/p IR perc drain placement with 200 cc purulent output, cx pending
-Repeat blood cx's this am.
-Continue cefepime/metronidazole (d2)
- Trend fever and leukocytosis.
Chief Complaint
-: Clinical Sepsis, Bacteremia and Other (liver abscess)
Subjective / Review of Systems
Feeling better today.
Vital Signs / Physical Exam
Vital Signs
Vital Signs
Temp Pulse Resp BP Pulse Ox
98.6 F 77 20 111/66 93
05/03/23 08:06 05/03/23 09:00 05/03/23 09:00 05/03/23 09:00 05/03/23 09:00
Physical Exam
Constitutional: No Acute Distress and Comfortable
Pulmonary: Clear
Gastrointestinal: Soft, Non Tender, Non Distended, Normal Bowel Sounds and Other (NOAH drain with brown fluid)
Extremities: Negative Edema
Neurological: AO x 3
Objective Data
Lab Data
Lab Results
05/03/23 05:08
05/03/23 05:08
PT 19.2 Sec (11.4-14.6) H 05/02/23 02:47
INR 1.58 05/02/23 02:47
APTT 37.5 Sec (23.4-35.0) H 05/02/23 02:47
Estimated Creat Clear 34 ml/min 05/03/23 05:08
Lactic Acid 1.1 mmol/L (0.7-2.0) 05/03/23 05:08
Total Bilirubin 1.0 mg/dl (0.2-1.3) 05/03/23 05:08
GGT 179 U/L (12-43) H 05/02/23 02:47
AST 144 U/L (14-36) H 05/03/23 05:08
ALT 106 U/L (0-35) H 05/03/23 05:08
Alkaline Phosphatase 276 U/L (38-126) H 05/03/23 05:08
Most recent labs reviewed.
Micro Results:
05/03/23 06:35 Blood Culture - Pending
Blood/Venous
05/03/23 05:08 Blood Culture - Pending
Blood/Venous
05/01/23 16:24 Blood Culture - Preliminary
Blood/Venous Positive culture in progress
Gram Stain - Preliminary
05/02/23 16:20 Wound Culture - Pending
Abscess Gram Stain - Preliminary
05/01/23 16:24 Blood Culture - Preliminary
Blood/Venous Positive culture in progress
Gram Stain - Preliminary
05/02/23 16:20 Fungal Smear - Pending
Abscess Fungal Culture - Preliminary
Culture in progress.
Positive cultures are reported as soon as detected.
Final report to follow in four to five weeks.
05/02/23 16:20 Anaerobic Culture - Pending
Abscess
05/01/23 23:20 Salmonella/Shigella Culture - Pending
Feces/Stool Campylobacter Culture - Pending
Shiga Toxin Test - Pending
Stool Leukocytes - Final
05/01/23 23:20 C. difficile GDH Antigen & Toxins - Final
Feces/Stool Negative for toxigenic C.difficile
05/01/23 13:08 Influenza Types A & B (RADHA) - Final
Nasal Swab Negative for Influenza A & B, NAAT
Negative results must be combined with clinical observations
and patient history.
Nucleic Acid Amplification test (NAAT)performed on the
[employer] platform.
05/01/23 CT a/p with IV and oral contrast: LARGE 9.7 cm HEPATIC ABSCESS in the left lobe of the liver. LARGE PARAESOPHAGEAL HIATAL HERNIA with mesentero-axial positioning of the stomach in the hernia sac. Very severe diverticulosis in the sigmoid
colon.
05/01/23 CXR: There is a large retrocardiac air-fluid level to the left of midline, the differential includes a large hiatal hernia versus a large left Bochdalek hernia.
[2023-05-03] MEDS: IMODIUM 2 MG PO (10:18)
[2023-05-03] MEDS: MAXIPIME 1000 MG IV ×2 (10:18→17:20)
[2023-05-03] MEDS: STERILE WATER FOR INJECTION 10 ML IV ×2 (10:18→17:20)
--- NOTE | 2023-05-03 10:24 | PTCARENOTE ---
levophed weaned to off by MD parameters, tolerated changes well. oob to bathroom for loose/watery BM, used rw but gait steady, minimal assistance. to recliner. settled. diet advanced per Dr. Cortez. feeling well.
--- NOTE | 2023-05-03 10:54 | PTOTSP ---
pt currently demonstrates ability to complete simple ADLs, functional transfers, ambulation with supervision to no assistance. no acute OT needs identified at this time, will sign off.
--- NOTE | 2023-05-03 11:45 | CM ---
CM following re: discharge planning.
Reviewed pt's chart, met with pt.
Pt is an 82 year old female, admitted with primary dx of Sepsis.
Pt reports she lives with in an independent apartment at [facility], has 2 supportive children. 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 No DME, VN or SNF history.
Pt stated she drinks a glass of wine daily with her , does not see it as a problem and at the same time pt agrees to meet with [facility] team. A referral to [facility] made.
PCP: Yahaira Morgan
Pharmacy: [facility].
D/C plan: home with anticipated no needs. [facility] following.
CM will follow with discharge plan updates as hospitalization progresses
--- NOTE | 2023-05-03 12:22 | W.PN.NEPH.PH ---
Addendum entered and electronically signed by Ale Cowan MD 05/13/23 12:40:
hyponatremia from acute illness
Original Note:
Today's Communication / Plan
-
monitor labs, likely d/c IVF later today
Assessment/Plan
-
IMP:
Septic Shock
Large hepatic abscess at Lt lobe of liver
Abn transaminitis
Mild hepatosplenomegaly
Anion gap metabolic acidosis (corrected for low albumin)
elevated lactate
Hyponatremia
Acute Kidney Injury
Anemia
Essential HTN
ETOH daily use
Diverticulosis
Large paraesophageal hiatal hernia
Plan:
A/w gen weakness,chills-found large liver abscess on CT
septic shock off pressors this am , titrate for MAP>65
abx per ID adjust improving GFR
TATA-likely prerenal, +s/p contrast on 04/12, bland UA and U na low at 10
L acidosis improving, cr better and non oliguric
met acidosis better with bicarb IVF, likely d/c later today
vol status seem stable though high BNP in setting of TATA
hyponatremia ADH mediated in acute illness, U osmo 254, normal TSH
na better, cotn FR 48ounces/day
monitor h/h, found fe def- NO IV Fe with bacteremia
d/w pt
-
-
Date of Service: May 03, 2023
CC / HPI / ROS
-
Chief Complaint:
TATA, hyponatremia
History of Present Illness:
sodium better at 133, cr improving to 1 and non oliguric
BP stable, off pressors this am
WBC high 25k-improving
hb stable 8.6
Review of Systems:
feels well
able to walk with PT
no CP or sob and not on O2
Labs
-
Labs:
WBC 25.7 10^3/uL (4.8-10.8) H 05/03/23 05:08
RBC 3.03 10^6/uL (4.20-5.40) L 05/03/23 05:08
Hgb 8.6 g/dL (12.0-16.0) L 05/03/23 05:08
Hct 24.2 % (37.0-47.0) L 05/03/23 05:08
Plt Count 370 10^3/uL (130-400) 05/03/23 05:08
Sodium 133 mmol/L (135-145) L 05/03/23 05:08
Potassium 3.7 mmol/L (3.5-5.1) 05/03/23 05:08
Chloride 103 mmol/L (98-107) 05/03/23 05:08
Carbon Dioxide 22 mmol/L (22-30) 05/03/23 05:08
BUN 29 mg/dl (7-17) H 05/03/23 05:08
Creatinine 1.0 mg/dL (0.6-1.0) 05/03/23 05:08
eGFR 56.25 05/03/23 05:08
Glucose 114 mg/dl (70-99) H 05/03/23 05:08
Calcium 7.2 mg/dl (8.4-10.2) L 05/03/23 05:08
Phosphorus 3.4 mg/dl (2.5-4.5) 05/03/23 05:08
Fus-P-Deyuzamzjsb Pept 2260 pg/ml 05/02/23 05:13
Albumin 1.9 g/dl (3.5-5.0) L 05/03/23 05:08
Physical Exam
-
Vital Signs:
Vital Signs
Temp Pulse Resp BP Pulse Ox
98.2 F 78 16 101/61 96
05/03/23 11:58 05/03/23 11:45 05/03/23 11:45 05/03/23 11:30 05/03/23 10:37
Cardiovascular:: Regular rate and rhythm
Respiratory:: Bilateral: CTA
Lung Excursion:: Normal
Abdomen:: Nontender and Soft
Extremity Edema:: None: Bilateral:
Hernández Catheter: No
--- NOTE | 2023-05-03 15:13 | PN.CDI ---
CDI
- -
CDI:
Physician Documentation Request
Admit Date: 05/01/23 21:54
Dear Doctor Camryn,
Please review the following and provide your response in the progress notes.
Clinical Indicators:
Pt admitted with septic shock 2/2 hepatic abscess
Pt with hyponatremia
Documented per nephrology consult, ' Hyponatremia ADH mediated probably in acute illness. Urine osmolality 254...If repeat labs shows worsening hyponatremia, likely consider 3% saline later today. Start fluid restriction of 48 ounces ...'
05/01/23 05/01/23 05/01/23
13:08 17:57 17:57
Serum Osmolality 284
Urine Osmolality 561
Urine Sodium 21 L
05/02/23
08:22
Urine Osmolality 254 L
Urine Sodium 10 L
Please provide the suspected Etiology of documented Hyponatremia :
SIADH
Hyponatremia due to acute illness only
Other
Use of terms such as suspected, likely, concern for, or probable (associated with a specific diagnosis that is being evaluated, monitored, or treated as if it exists) are acceptable and can be coded in the inpatient setting, when documented at the
time of discharge.
Thank you,
Brenda Haque RN
CDI Specialist
[facility]
Please use your independent medical judgment in providing your response.
[2023-05-03] MEDS: HEPARIN 5000 UNITS SC (16:25)
[2023-05-03] MEDS: FLAGYL 500 MG PO ×2 (16:25→21:44)
--- NOTE | 2023-05-03 16:46 | PTCARENOTE ---
tsf tele orders obtained, room assigned, report given. pts dinner tray arrived, will eat here and then transfer. drain emptied, no other change, no c/o at present. anxious about the transfer/roommate situation, support given.
--- NOTE | 2023-05-03 17:42 | TRANSFER ---
transfer to room 436-01 with all belongings via wc, family accompanied, ate dinner and voided unmeasured prior to leaving ICU.
--- NOTE | 2023-05-03 18:08 | PTCARENOTE ---
Patient received from ICU at 1750 awake and alert , accompanied by . Transferred from chair to bed with minimal difficulty . Denies pain at present . Oriented to room . Call pierre in reach, on phone at present .
[2023-05-03] MEDS: TYLENOL 650 MG PO (21:49)
[2023-05-04] MEDS: HEPARIN SC (00:39)
[2023-05-04] MEDS: STERILE WATER FOR INJECTION 10 ML IV ×3 (02:21→14:29)
[2023-05-04] MEDS: MAXIPIME 1000 MG IV ×2 (02:21→09:36)
[2023-05-04 03:45] VITALS: BP 100/60
[2023-05-04 06:44] LABS: % Basophils 0.4 % (0-2); % Eosinophils 0.9 % (0-6); % Immature Granulocytes 1.2 % (0-0.5); % Lymphocytes 6.4 % (20.5-51.1); % Monocytes 2.8 % (1.7-9.3); % Neutrophils 88.3 % (42.2-75.2); Absolute Basophils 0.1 10^3/uL (0-0.2); Absolute Eosinophils 0.2 10^3/uL (0-0.7); Absolute Immature Granulocytes 0.3 10^3/uL (0-0.05); Absolute Lymphocytes 1.4 10^3/uL (1.2-3.4); Absolute Monocytes 0.6 10^3/uL (0.1-0.6); Absolute Neutrophils 19.2 10^3/uL (1.4-6.5); Hematocrit 24.6 % (37.0-47.0); Hemoglobin 8.6 g/dL (12.0-16.0); Mean Corpuscular Hgb 27.8 pg (27.0-31.0); Mean Corpuscular Volume 79.6 fL (81.0-99.0); Mean Platelet Volume 9.8 fL (7.4-10.4); Nucleated Red Blood Cells % 0 %; Platelet Count 445 10^3/uL (130-400); Red Blood Cell Count 3.09 10^6/uL (4.20-5.40); Red Cell Dist. Width 14.9 % (11.5-14.5); White Blood Cell Count 21.7 10^3/uL (4.8-10.8)
[2023-05-04 07:07] LABS: ALT (SGPT) 75 U/L (0-35); AST (SGOT) 69 U/L (14-36); Albumin 1.9 g/dl (3.5-5.0); Alkaline Phosphatase 295 U/L (38-126); Blood Urea Nitrogen 20 mg/dl (7-17); Calcium 7.4 mg/dl (8.4-10.2); Carbon Dioxide 26 mmol/L (22-30); Chloride 101 mmol/L (98-107); Estimated Creatinine Clearance 49 ml/min; Glucose 87 mg/dl (70-99); Magnesium 2.3 mg/dl (1.6-2.3); Phosphorus 3.4 mg/dl (2.5-4.5); Potassium 3.6 mmol/L (3.5-5.1); Sodium 134 mmol/L (135-145); Total Bilirubin 0.7 mg/dl (0.2-1.3); Total Protein 4.3 g/dl (6.3-8.2); eGFR > 60.00
[2023-05-04 07:30] VITALS: BP 125/72
[2023-05-04] MEDS: FLAGYL 500 MG PO ×3 (09:32→21:33)
[2023-05-04] MEDS: FOLVITE 1 MG PO (09:33)
[2023-05-04] MEDS: HEPARIN 5000 UNITS SC ×2 (09:33→16:24)
[2023-05-04] MEDS: VISBIOME 1 CAP PO (09:35)
[2023-05-04] MEDS: VITAMIN B1 100 MG PO (09:35)
[2023-05-04] MEDS: THERAGRAN 1 TABLET PO (09:35)
--- NOTE | 2023-05-04 10:05 | W.PN.HOSP.TC ---
Today's Communication/Plan
-
F/U final cultures
monitor CBC
F/U antibiotic plan from ID
Assessment / Plan
Assessment / Plan
82-year-old woman with hx hypertension presents c/o generalized weakness, nausea, anorexia, chills x several days, noted to have a temp of [address] abdomen showing a large 9.7 m hepatic abscess in the left lobe of the liver.� � � � � � � � � �
� � � � � � � � � � � � � � � � � � � � � � � � � � � � � � � � � � � � � � � � � � � � � � � � � � � � � � � � � � � � � � � � � � � � � � � � � � � � � � � � � � � � � � � � � � � �
CT Abd/pel W Iv And Oral Contr
1. � LARGE 9.7 cm HEPATIC ABSCESS in the left lobe of the liver.
2. � Mild hepatosplenomegaly.
3. � LARGE PARAESOPHAGEAL HIATAL HERNIA with mesentero-axial positioning of the stomach in the hernia sac.
4. � Very severe diverticulosis in the sigmoid colon.
5. � Mild cardiomegaly.
Septic Shock
Large hepatic abscess at Lt lobe of liver
Abn transaminitis
Reactive thrombocytosis
Mild hepatosplenomegaly
- shock resolved; transferred out of ICU on 05/03
- s/p IR guided drainage 05/02; NOAH drain in place
- continue antibiotics IV Cefepime/Flagyl while awaiting final cultures (abscess growing E. Coli, and Group F strep; cultures with anaerobic gram neg)
- appreciate ID
- tolerating diet
-eventual outpatient colonoscopy
Anion gap metabolic acidosis (corrected for low albumin)
Persistent elevated lactate
-resolved
-appreciate renal
Hyponatremia
-resolved
Acute Kidney Injury
-resolved
Essential HTN
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
ETOH daily use ; suspect lo risk
- MSAS protocol for low risk
DVT Px: SCD
Full code
IMU
51 minutes spent on patient evaluation, medical decision making, coordination of care
Anticipated Discharge: 24 - 48 hours
Subjective/Interval History
-
Date of Service: May 04, 2023
feeling better
Objective Data
-
Labs:
Laboratory Results
05/04/23
05:35
WBC 21.7 H
Hgb 8.6 L
Hct 24.6 L
Plt Count 445 H D
Sodium 134 L
Potassium 3.6
Chloride 101
Carbon Dioxide 26
BUN 20 H
Creatinine 0.8
Glucose 87
Calcium 7.4 L
Total Bilirubin 0.7
AST 69 H
ALT 75 H
Alkaline Phosphatase 295 H
Vital Signs:
Vital Signs
Temp Pulse Resp BP Pulse Ox
97.7 F 90 16 125/72 100
05/04/23 07:30 05/04/23 07:30 05/04/23 07:30 05/04/23 07:30 05/04/23 07:30
I&O
05/03/23 05/04/23 05/05/23
06:59 06:59 06:59
Intake Total 2422.6 / 2547.6 1654.3 / 1654.3
Output Total 194 / 1939 285 / 285
Balance 482.6 / 607.6 1369.3 / 1369.3
Review of Systems
-
History Source: Patient
All other systems: Reviewed and negative
Physical Exam
-
General: No Apparent Distress and Conversant
HEENT: PERRLA
Respiratory: Clear to Auscultation; Negative Wheezes
Cardiac: Regular Rhythm and S1/S2
GI: Soft, Nontender and Other (NOAH drain with exudative fluid )
Musculoskeletal: No Edema
Skin: Warm and Dry; Negative Rash
Neuro: AO x 3
Psych: Calm
Data Reviewed
-
Diagnostic Radiology: Report Reviewed by me
Labs: Labs Reviewed by me
[2023-05-04 11:11] VITALS: BP 112/73
--- NOTE | 2023-05-04 12:54 | W.PN.ID1 ---
Date of Service
Date of Service: May 04, 2023
Today's Communication
See below. Continue abx's.
Assessment / Plan
# Hepatic abscess
# Anaerobic GNR bacteremia due to liver abscess
# Severe sepsis due to liver abscess, continues to improve
- Unclear source of liver abscess; she does have severe diverticulosis. Eventual outpatient colonoscopy.
- 05/02/22 s/p IR perc drain placement with 200 cc purulent output, cx E. coli, Group F Strep
-Repeat blood cx's neg to date.
-Narrow cefepime to ceftriaxone. Continue po metronidazole. (d3 abx0
- Trend fever and leukocytosis.
# Diarrhea
-C. diff negative
- Imodium prn
Chief Complaint
-: Clinical Sepsis, Bacteremia and Other (liver abscess)
Subjective / Review of Systems
c/o about diarrhea.
Feels weak.
Vital Signs / Physical Exam
Vital Signs
Vital Signs
Temp Pulse Resp BP Pulse Ox
98.2 F 81 16 112/73 97
05/04/23 11:11 05/04/23 11:11 05/04/23 11:11 05/04/23 11:11 05/04/23 11:11
Physical Exam
Constitutional: No Acute Distress and Comfortable
Gastrointestinal: Soft, Non Tender, Non Distended and Other (RUQ NOAH drain: cloudy cream colored fluid)
Extremities: Negative Edema
Neurological: AO x 3
Objective Data
Lab Data
Lab Results
05/04/23 05:35
05/04/23 05:35
PT 19.2 Sec (11.4-14.6) H 05/02/23 02:47
INR 1.58 05/02/23 02:47
APTT 37.5 Sec (23.4-35.0) H 05/02/23 02:47
Estimated Creat Clear 49 ml/min 05/04/23 05:35
Lactic Acid 1.1 mmol/L (0.7-2.0) 05/03/23 05:08
Total Bilirubin 0.7 mg/dl (0.2-1.3) 05/04/23 05:35
GGT 179 U/L (12-43) H 05/02/23 02:47
AST 69 U/L (14-36) H 05/04/23 05:35
ALT 75 U/L (0-35) H 05/04/23 05:35
Alkaline Phosphatase 295 U/L (38-126) H 05/04/23 05:35
Most recent labs reviewed.
Micro Results:
05/01/23 23:20 Salmonella/Shigella Culture - Final
Feces/Stool No Salmonella, Shigella, Aeromonas or Plesiomonas species
isolated.
Campylobacter Culture - Final
No Campylobacter species isolated.
Shiga Toxin Test - Pending
Stool Leukocytes - Final
05/02/23 16:20 Wound Culture - Preliminary
Abscess Escherichia coli
Group F Streptococcus
Gram Stain - Preliminary
05/01/23 16:24 Blood Culture - Preliminary
Blood/Venous Anaerobic gram neg bacilli
Gram Stain - Preliminary
05/03/23 06:35 Blood Culture - Preliminary
Blood/Venous No Growth in 24 hours- Final report to follow
05/03/23 05:08 Blood Culture - Preliminary
Blood/Venous No Growth in 24 hours- Final report to follow
05/02/23 16:20 Anaerobic Culture - Preliminary
Abscess Culture pending. Anaerobic cultures are examined after 3
days incubation. Additional information to follow.
05/01/23 16:24 Blood Culture - Preliminary
Blood/Venous Anaerobic gram neg bacilli
Gram Stain - Preliminary
05/02/23 16:20 Fungal Smear - Pending
Abscess Fungal Culture - Preliminary
Culture in progress.
Positive cultures are reported as soon as detected.
Final report to follow in four to five weeks.
05/01/23 23:20 C. difficile GDH Antigen & Toxins - Final
Feces/Stool Negative for toxigenic C.difficile
05/01/23 13:08 Influenza Types A & B (RADHA) - Final
Nasal Swab Negative for Influenza A & B, NAAT
Negative results must be combined with clinical observations
and patient history.
Nucleic Acid Amplification test (NAAT)performed on the
[employer] platform.
05/01/23 CT a/p with IV and oral contrast: LARGE 9.7 cm HEPATIC ABSCESS in the left lobe of the liver. LARGE PARAESOPHAGEAL HIATAL HERNIA with mesentero-axial positioning of the stomach in the hernia sac. Very severe diverticulosis in the sigmoid
colon.
05/01/23 CXR: There is a large retrocardiac air-fluid level to the left of midline, the differential includes a large hiatal hernia versus a large left Bochdalek hernia.
[2023-05-04] MEDS: ROCEPHIN 1000 MG IV (14:28)
[2023-05-04] MEDS: IMODIUM 2 MG PO (14:47)
[2023-05-04 15:17] VITALS: BP 138/71
--- NOTE | 2023-05-04 15:44 | CM ---
venue manager reviewed patient's chart and patient with drain in place through IR, due to Hepatic Abscess, patient is also followed by ID, will need to follow progress to see if patient needs IV ABX at discharge, referral sent to [facility] to set up
meeting with patient.
Plan; To follow with patient and assist with discharge planning.
--- NOTE | 2023-05-04 17:30 | W.PN.NEPH.PH ---
Today's Communication / Plan
-
sodium and Cr better
neph to sign off
Assessment/Plan
-
IMP:
Septic Shock
Large hepatic abscess at Lt lobe of liver
Abn transaminitis
Mild hepatosplenomegaly
Anion gap metabolic acidosis (corrected for low albumin)
elevated lactate
Hyponatremia
Acute Kidney Injury
Anemia
Essential HTN
ETOH daily use
Diverticulosis
Large paraesophageal hiatal hernia
Plan:
A/w gen weakness,chills-found large liver abscess on CT
septic shock off pressors since 05/03 , titrate for MAP>65
abx per ID adjust improving GFR
TATA-likely prerenal, +s/p contrast on 04/12, bland UA and U na low at 10
L acidosis improving, cr better and non oliguric
met acidosis better with bicarb IVF, off fluids
vol status seem stable though high BNP in setting of TATA
hyponatremia ADH mediated in acute illness, U osmo 254, normal TSH
na better, stop free water restriction
monitor h/h, found fe def- NO IV Fe with bacteremia
d/w pt
-
-
Date of Service: May 04, 2023
CC / HPI / ROS
-
Chief Complaint:
TATA, hyponatremia
History of Present Illness:
sodium better at 134, cr improving to 0.8 and non oliguric
BP stable, off pressors this am
WBC high 21k-improving
hb stable 8.6
Review of Systems:
feels well
able to walk with PT
no CP or sob and not on O2
Labs
-
Labs:
WBC 21.7 10^3/uL (4.8-10.8) H 05/04/23 05:35
RBC 3.09 10^6/uL (4.20-5.40) L 05/04/23 05:35
Hgb 8.6 g/dL (12.0-16.0) L 05/04/23 05:35
Hct 24.6 % (37.0-47.0) L 05/04/23 05:35
Plt Count 445 10^3/uL (130-400) H D 05/04/23 05:35
Sodium 134 mmol/L (135-145) L 05/04/23 05:35
Potassium 3.6 mmol/L (3.5-5.1) 05/04/23 05:35
Chloride 101 mmol/L (98-107) 05/04/23 05:35
Carbon Dioxide 26 mmol/L (22-30) 05/04/23 05:35
BUN 20 mg/dl (7-17) H 05/04/23 05:35
Creatinine 0.8 mg/dL (0.6-1.0) 05/04/23 05:35
eGFR > 60.00 05/04/23 05:35
Glucose 87 mg/dl (70-99) 05/04/23 05:35
Calcium 7.4 mg/dl (8.4-10.2) L 05/04/23 05:35
Phosphorus 3.4 mg/dl (2.5-4.5) 05/04/23 05:35
Ymg-A-Ifjcxifiqdx Pept 2260 pg/ml 05/02/23 05:13
Albumin 1.9 g/dl (3.5-5.0) L 05/04/23 05:35
Physical Exam
-
Vital Signs:
Vital Signs
Temp Pulse Resp BP Pulse Ox
98.8 F 81 16 138/71 97
05/04/23 15:17 05/04/23 15:17 05/04/23 15:17 05/04/23 15:17 05/04/23 15:17
Cardiovascular:: Regular rate and rhythm
Respiratory:: Bilateral: CTA
Lung Excursion:: Normal
Abdomen:: Soft and Tender
Bowel Sounds:: Normal
Extremity Edema:: None: Bilateral:
Hernández Catheter: No
[2023-05-04 19:20] VITALS: BP 136/72
[2023-05-04 23:05] VITALS: BP 109/59
[2023-05-05] VITALS (7 sets, daily range): BP systolic 108–138; BP diastolic 64–77; PULSE 80; O2SAT 96
[2023-05-05] MEDS: HEPARIN 5000 UNITS SC ×4 (01:25→23:11)
[2023-05-05 08:00] LABS: % Basophils 0.4 % (0-2); % Eosinophils 0.9 % (0-6); % Immature Granulocytes 0.9 % (0-0.5); % Lymphocytes 9.4 % (20.5-51.1); % Monocytes 4.8 % (1.7-9.3); % Neutrophils 83.6 % (42.2-75.2); Absolute Basophils 0.1 10^3/uL (0-0.2); Absolute Eosinophils 0.2 10^3/uL (0-0.7); Absolute Immature Granulocytes 0.2 10^3/uL (0-0.05); Absolute Lymphocytes 1.6 10^3/uL (1.2-3.4); Absolute Monocytes 0.8 10^3/uL (0.1-0.6); Absolute Neutrophils 14.3 10^3/uL (1.4-6.5); Hematocrit 24.5 % (37.0-47.0); Hemoglobin 8.5 g/dL (12.0-16.0); Mean Corp Hgb Conc. 34.7 g/dL (33.0-37.0); Mean Corpuscular Hgb 27.8 pg (27.0-31.0); Mean Corpuscular Volume 80.1 fL (81.0-99.0); Mean Platelet Volume 9.6 fL (7.4-10.4); Nucleated Red Blood Cells % 0 %; Platelet Count 481 10^3/uL (130-400); Red Blood Cell Count 3.06 10^6/uL (4.20-5.40); Red Cell Dist. Width 15.3 % (11.5-14.5); White Blood Cell Count 17.1 10^3/uL (4.8-10.8)
[2023-05-05 08:04] LABS: ALT (SGPT) 50 U/L (0-35); AST (SGOT) 39 U/L (14-36); Alkaline Phosphatase 330 U/L (38-126); Blood Urea Nitrogen 13 mg/dl (7-17); Calcium 7.3 mg/dl (8.4-10.2); Carbon Dioxide 25 mmol/L (22-30); Chloride 103 mmol/L (98-107); Estimated Creatinine Clearance 56 ml/min; Glucose 83 mg/dl (70-99); Potassium 3.7 mmol/L (3.5-5.1); Sodium 132 mmol/L (135-145); Total Bilirubin 0.7 mg/dl (0.2-1.3); Total Protein 4.6 g/dl (6.3-8.2); eGFR > 60.00
--- NOTE | 2023-05-05 09:50 | W.PN.ID1 ---
Date of Service
Date of Service: May 05, 2023
Today's Communication
Recommend CT abscessogram tomorrow
Assessment / Plan
# Hepatic abscess
# Bacteroides cacae bacteremia due to liver abscess
# Severe sepsis due to liver abscess, continues to improve
-Fever resolved. Leukocytosis trending down
- Unclear source of liver abscess; she does have severe diverticulosis. Eventual outpatient colonoscopy.
-Repeat blood cx's neg to date.
- 05/02/22 s/p IR perc drain placement with 200 cc purulent output, cx E. coli, Group F Strep
-Drain output decreasing.
-Recommend CT abscessogram tomorrow to follow abscess and ?need to continue drain
- Continue ceftriaxone and po metronidazole. (d4 abx)
- Trend leukocytosis.
# Diarrhea - resolved
-C. diff negative
- Imodium prn
Chief Complaint
-: Clinical Sepsis, Bacteremia and Other (liver abscess)
Subjective / Review of Systems
Diarrhea resolved.
Vital Signs / Physical Exam
Vital Signs
Vital Signs
Temp Pulse Resp BP Pulse Ox
97.9 F 77 18 130/66 97
05/05/23 07:00 05/05/23 07:00 05/05/23 07:00 05/05/23 07:00 05/05/23 07:00
Physical Exam
Constitutional: No Acute Distress
Cardiovascular: Regular Rate and S1/S2
Pulmonary: Clear
Gastrointestinal: Soft, Non Tender, Non Distended and Other (RUQ drain: cloudy cream colored fluid)
Neurological: AO x 3
Objective Data
Lab Data
Lab Results
05/05/23 06:27
05/05/23 06:27
PT 19.2 Sec (11.4-14.6) H 05/02/23 02:47
INR 1.58 05/02/23 02:47
APTT 37.5 Sec (23.4-35.0) H 05/02/23 02:47
Estimated Creat Clear 56 ml/min 05/05/23 06:27
Lactic Acid 1.1 mmol/L (0.7-2.0) 05/03/23 05:08
Total Bilirubin 0.7 mg/dl (0.2-1.3) 05/05/23 06:27
GGT 179 U/L (12-43) H 05/02/23 02:47
AST 39 U/L (14-36) H 05/05/23 06:27
ALT 50 U/L (0-35) H 05/05/23 06:27
Alkaline Phosphatase 330 U/L (38-126) H 05/05/23 06:27
Most recent labs reviewed.
Micro Results:
05/01/23 23:20 Salmonella/Shigella Culture - Final
Feces/Stool No Salmonella, Shigella, Aeromonas or Plesiomonas species
isolated.
Campylobacter Culture - Final
No Campylobacter species isolated.
Shiga Toxin Test - Final
No E. coli Shiga Toxin 1 or 2 detected.
Stool Leukocytes - Final
05/03/23 06:35 Blood Culture - Preliminary
Blood/Venous No Growth in 48 hours- Final report to follow
05/03/23 05:08 Blood Culture - Preliminary
Blood/Venous No Growth in 48 hours- Final report to follow
05/02/23 16:20 Fungal Smear - Final
Abscess No yeast or fungal elements seen.
Fungal Culture - Preliminary
Culture in progress.
Positive cultures are reported as soon as detected.
Final report to follow in four to five weeks.
05/01/23 16:24 Blood Culture - Preliminary
Blood/Venous Bacteroides Caccae
Gram Stain - Preliminary
05/01/23 16:24 Blood Culture - Preliminary
Blood/Venous Bacteroides Caccae
Gram Stain - Preliminary
05/02/23 16:20 Wound Culture - Preliminary
Abscess Escherichia coli
Group F Streptococcus
Gram Stain - Preliminary
05/02/23 16:20 Anaerobic Culture - Preliminary
Abscess Culture pending. Anaerobic cultures are examined after 3
days incubation. Additional information to follow.
05/01/23 23:20 C. difficile GDH Antigen & Toxins - Final
Feces/Stool Negative for toxigenic C.difficile
05/01/23 13:08 Influenza Types A & B (RADHA) - Final
Nasal Swab Negative for Influenza A & B, NAAT
Negative results must be combined with clinical observations
and patient history.
Nucleic Acid Amplification test (NAAT)performed on the
[employer] platform.
05/01/23 CT a/p with IV and oral contrast: LARGE 9.7 cm HEPATIC ABSCESS in the left lobe of the liver. LARGE PARAESOPHAGEAL HIATAL HERNIA with mesentero-axial positioning of the stomach in the hernia sac. Very severe diverticulosis in the sigmoid
colon.
05/01/23 CXR: There is a large retrocardiac air-fluid level to the left of midline, the differential includes a large hiatal hernia versus a large left Bochdalek hernia.
Care Review
Plan reviewed with: Physician (Dr. Cortez)
[2023-05-05] MEDS: THERAGRAN 1 TABLET PO (10:58)
[2023-05-05] MEDS: FLAGYL 500 MG PO ×3 (10:58→22:03)
[2023-05-05] MEDS: VITAMIN B1 100 MG PO (10:58)
[2023-05-05] MEDS: FOLVITE 1 MG PO (10:58)
[2023-05-05] MEDS: VISBIOME 1 CAP PO (10:58)
--- NOTE | 2023-05-05 11:10 | W.PN.HOSP.TC ---
Today's Communication/Plan
-
see plan
Assessment / Plan
Assessment / Plan
82-year-old woman with hx hypertension presents c/o generalized weakness, nausea, anorexia, chills x several days, noted to have a temp of [address] abdomen showing a large 9.7 m hepatic abscess in the left lobe of the liver.� � � � � � � � � �
� � � � � � � � � � � � � � � � � � � � � � � � � � � � � � � � � � � � � � � � � � � � � � � � � � � � � � � � � � � � � � � � � � � � � � � � � � � � � � � � � � � � � � � � � � � �
CT Abd/pel W Iv And Oral Contr
1. � LARGE 9.7 cm HEPATIC ABSCESS in the left lobe of the liver.
2. � Mild hepatosplenomegaly.
3. � LARGE PARAESOPHAGEAL HIATAL HERNIA with mesentero-axial positioning of the stomach in the hernia sac.
4. � Very severe diverticulosis in the sigmoid colon.
5. � Mild cardiomegaly.
Septic Shock
Large hepatic abscess at Lt lobe of liver
Abn transaminitis
Reactive thrombocytosis
Mild hepatosplenomegaly
- shock resolved; transferred out of ICU on 05/03
- s/p IR guided drainage 05/02; NOAH drain in place
- continue antibiotics IV Ceftriaxone/Flagyl while awaiting final cultures (abscess growing E. Coli, and Group F strep; cultures with anaerobic gram neg)
- appreciate ID
- tolerating diet
-eventual outpatient colonoscopy
Anion gap metabolic acidosis (corrected for low albumin)
Persistent elevated lactate
-resolved
-appreciate renal
Hyponatremia
-resolved
Acute Kidney Injury
-resolved
Essential HTN
-hold BOX SPINNER Losartan
ETOH daily use ; suspect lo risk
- MSAS protocol for low risk
DVT Px: SCD
Full code
IMU
51 minutes spent on patient evaluation, medical decision making, coordination of care
Anticipated Discharge: 24 - 48 hours
Subjective/Interval History
-
Date of Service: May 05, 2023
feeling well
asking about drain
Objective Data
-
Labs:
Laboratory Results
05/05/23
06:27
WBC 17.1 H
Hgb 8.5 L
Hct 24.5 L
Plt Count 481 H
Sodium 132 L
Potassium 3.7
Chloride 103
Carbon Dioxide 25
BUN 13
Creatinine 0.7
Glucose 83
Calcium 7.3 L
Total Bilirubin 0.7
AST 39 H
ALT 50 H
Alkaline Phosphatase 330 H
Vital Signs:
Vital Signs
Temp Pulse Resp BP Pulse Ox
97.9 F 77 18 130/66 97
05/05/23 07:00 05/05/23 07:00 05/05/23 07:00 05/05/23 07:00 05/05/23 07:00
I&O
05/04/23 05/05/23 05/06/23
06:59 06:59 06:59
Intake Total 1654.3 / 1654.3 1490 / 1490
Output Total 285 / 285 45 / 45
Balance 1369.3 / 1369.3 1445 / 1445
Review of Systems
-
History Source: Patient
All other systems: Reviewed and negative
Physical Exam
-
General: No Apparent Distress and Conversant
HEENT: PERRLA
Respiratory: Clear to Auscultation; Negative Wheezes
Cardiac: Regular Rhythm and S1/S2
GI: Soft, Nontender and Other (NOAH drain with exudative fluid )
Musculoskeletal: No Edema
Skin: Warm and Dry; Negative Rash
Neuro: AO x 3
Psych: Calm
Data Reviewed
-
Diagnostic Radiology: Report Reviewed by me
Labs: Labs Reviewed by me
--- NOTE | 2023-05-05 14:45 | CM ---
Chart reviewed and mattress spring encaser will follow with patient for discharge planning.
Plan; To follow with patient progress for discharge planning.
[2023-05-05] MEDS: STERILE WATER FOR INJECTION 10 ML IV (15:21)
[2023-05-05] MEDS: ROCEPHIN 1000 MG IV (15:22)
[2023-05-06 03:00] VITALS: BP 121/66
[2023-05-06 07:30] VITALS: BP 117/74
[2023-05-06] MEDS: FLAGYL 500 MG PO ×2 (08:31→15:01)
[2023-05-06] MEDS: HEPARIN 5000 UNITS SC (08:31)
[2023-05-06] MEDS: THERAGRAN 1 TABLET PO (08:31)
[2023-05-06] MEDS: FOLVITE 1 MG PO (08:32)
[2023-05-06] MEDS: VITAMIN B1 100 MG PO (08:32)
[2023-05-06] MEDS: VISBIOME 1 CAP PO (08:32)
[2023-05-06 08:56] LABS: % Basophils 0.3 % (0-2); % Lymphocytes 11.1 % (20.5-51.1); % Neutrophils 78.6 % (42.2-75.2); Absolute Basophils 0.1 10^3/uL (0-0.2); Absolute Eosinophils 0.2 10^3/uL (0-0.7); Absolute Immature Granulocytes 0.5 10^3/uL (0-0.05); Absolute Lymphocytes 1.6 10^3/uL (1.2-3.4); Absolute Monocytes 0.9 10^3/uL (0.1-0.6); Absolute Neutrophils 11.6 10^3/uL (1.4-6.5); Hematocrit 24.8 % (37.0-47.0); Hemoglobin 8.4 g/dL (12.0-16.0); Mean Corp Hgb Conc. 33.9 g/dL (33.0-37.0); Mean Corpuscular Volume 82.7 fL (81.0-99.0); Mean Platelet Volume 9.6 fL (7.4-10.4); Nucleated Red Blood Cells % 0 %; Platelet Count 473 10^3/uL (130-400); Red Cell Dist. Width 15.2 % (11.5-14.5); White Blood Cell Count 14.8 10^3/uL (4.8-10.8)
--- NOTE | 2023-05-06 09:02 | W.PN.HOSP.TC ---
Today's Communication/Plan
-
see plan
Assessment / Plan
Assessment / Plan
82-year-old woman with hx hypertension presents c/o generalized weakness, nausea, anorexia, chills x several days, noted to have a temp of [address] abdomen showing a large 9.7 m hepatic abscess in the left lobe of the liver.� � � � � � � � � �
� � � � � � � � � � � � � � � � � � � � � � � � � � � � � � � � � � � � � � � � � � � � � � � � � � � � � � � � � � � � � � � � � � � � � � � � � � � � � � � � � � � � � � � � � � � �
CT Abd/pel W Iv And Oral Contr
1. � LARGE 9.7 cm HEPATIC ABSCESS in the left lobe of the liver.
2. � Mild hepatosplenomegaly.
3. � LARGE PARAESOPHAGEAL HIATAL HERNIA with mesentero-axial positioning of the stomach in the hernia sac.
4. � Very severe diverticulosis in the sigmoid colon.
5. � Mild cardiomegaly.
Septic Shock
Large hepatic abscess at Lt lobe of liver
Abn transaminitis
Reactive thrombocytosis
Mild hepatosplenomegaly
- shock resolved; transferred out of ICU on 05/03
- s/p IR guided drainage 05/02; NOAH drain in place
- continue antibiotics IV Ceftriaxone/Flagyl, eventual transition to PO
- appreciate ID
- tolerating diet
-eventual outpatient colonoscopy
- drain output 25 yesterday; 20 this AM --> F/U further ID and IR recs on tube check
Anion gap metabolic acidosis (corrected for low albumin)
Persistent elevated lactate
-resolved
-appreciate renal
Hyponatremia
-resolved
Acute Kidney Injury
-resolved
Essential HTN
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
ETOH daily use ; suspect lo risk
- MSAS protocol for low risk
DVT Px: hep subQ
Full code
IMU
51 minutes spent on patient evaluation, medical decision making, coordination of care
Anticipated Discharge: 24 - 48 hours
Subjective/Interval History
-
Date of Service: May 06, 2023
feeling well
wants to know plan and when she can leave
Objective Data
-
Labs:
Laboratory Results
05/06/23
06:46
WBC Pending
Hgb Pending
Hct Pending
Plt Count Pending
Sodium Pending
Potassium Pending
Chloride Pending
Carbon Dioxide Pending
BUN Pending
Creatinine Pending
Glucose Pending
Calcium Pending
Total Bilirubin Pending
AST Pending
ALT Pending
Alkaline Phosphatase Pending
Vital Signs:
Vital Signs
Temp Pulse Resp BP Pulse Ox
98.1 F 79 16 121/66 95
05/06/23 03:00 05/06/23 03:00 05/06/23 03:00 05/06/23 03:00 05/06/23 03:00
I&O
05/05/23 05/06/23 05/07/23
06:59 06:59 06:59
Intake Total 1490 / 1490 900 / 900
Output Total 45 / 45 / 25 20 / 20
Balance 1445 / 1445 875 / 875 -20 / -20
Review of Systems
-
History Source: Patient
All other systems: Reviewed and negative
Physical Exam
-
General: No Apparent Distress and Conversant
HEENT: PERRLA
Respiratory: Clear to Auscultation; Negative Wheezes
Cardiac: Regular Rhythm and S1/S2
GI: Soft, Nontender and Other (NOAH drain with exudative fluid )
Musculoskeletal: No Edema
Skin: Warm and Dry; Negative Rash
Neuro: AO x 3
Psych: Calm
Data Reviewed
-
Diagnostic Radiology: Report Reviewed by me
Labs: Labs Reviewed by me
[2023-05-06 09:34] LABS: ALT (SGPT) 40 U/L (0-35); AST (SGOT) 40 U/L (14-36); Alkaline Phosphatase 317 U/L (38-126); Blood Urea Nitrogen 12 mg/dl (7-17); Calcium 7.2 mg/dl (8.4-10.2); Carbon Dioxide 24 mmol/L (22-30); Chloride 105 mmol/L (98-107); Estimated Creatinine Clearance 56 ml/min; Glucose 76 mg/dl (70-99); Potassium 3.9 mmol/L (3.5-5.1); Sodium 133 mmol/L (135-145); Total Bilirubin 0.6 mg/dl (0.2-1.3); Total Protein 4.5 g/dl (6.3-8.2); eGFR > 60.00
--- NOTE | 2023-05-06 10:09 | W.PN.ID1 ---
Addendum entered and electronically signed by Dianna Witners MD 05/06/23 13:27:
Reviewed repeat CT a/p: The abscess has significantly decreased in size now with a small amount of irregular residual fluid. Decreased attenuation of the liver parenchyma in the medial segment of the left lobe surrounding the abscess. Small low
signal intensity focus in the left lobe further inferiorly measuring 2.4 cm, likely a small collection/abscess.
Plan:
Will dc home with drain.
DC home on cefuroxime 500mg bid and metronidazole 500mg po tid, 20 day supply.
Follow-up with IR for drain removal evaluation in 1 week.
Follow-up with me in 2 weeks.
Outpatient colonoscopy.
D/W Dr. Cortez.
Original Note:
Date of Service
Date of Service: May 06, 2023
Today's Communication
CT a/p today.
See below.
Assessment / Plan
# Hepatic abscess
# Bacteroides cacae bacteremia due to liver abscess
# s/p Severe sepsis due to liver abscess
-Fever resolved.
- Leukocytosis continues trending down
- Unclear source of liver abscess; she does have severe diverticulosis. Eventual outpatient colonoscopy.
-Repeat blood cx's neg to date.
- 05/02/22 s/p IR perc drain placement with 200 cc purulent output, cx E. coli, Group F Strep
-Drain output decreasing.
-For repeat CT a/p pelvis today
- Continue ceftriaxone and po metronidazole. (d5 abx)
- Within next 24hrs, anticipate dc home on cefuroxime 500mg bid and metronidazole 500mg po tid.
Length of therapy depends on repeat CT findings, +/- drain removal.
- Trend leukocytosis.
# Diarrhea - resolved
-C. diff negative
- Imodium prn
Chief Complaint
-: Clinical Sepsis, Bacteremia and Other (liver abscess)
Subjective / Review of Systems
Doing well.
Asking when she can go home.
Vital Signs / Physical Exam
Vital Signs
Vital Signs
Temp Pulse Resp BP Pulse Ox
98.4 F 88 16 117/74 97
05/06/23 07:30 05/06/23 07:30 05/06/23 07:30 05/06/23 07:30 05/06/23 07:30
Physical Exam
Constitutional: No Acute Distress and Comfortable
Cardiovascular: Regular Rate and S1/S2
Gastrointestinal: Soft, Non Tender, Non Distended, Normal Bowel Sounds and Other
Genito-Urinary: Negative CVA Tenderness
Neurological: AO x 3
Objective Data
Lab Data
Lab Results
05/06/23 06:46
05/06/23 06:46
PT 19.2 Sec (11.4-14.6) H 05/02/23 02:47
INR 1.58 05/02/23 02:47
APTT 37.5 Sec (23.4-35.0) H 05/02/23 02:47
Estimated Creat Clear 56 ml/min 05/06/23 06:46
Lactic Acid 1.1 mmol/L (0.7-2.0) 05/03/23 05:08
Total Bilirubin 0.6 mg/dl (0.2-1.3) 05/06/23 06:46
GGT 179 U/L (12-43) H 05/02/23 02:47
AST 40 U/L (14-36) H 05/06/23 06:46
ALT 40 U/L (0-35) H 05/06/23 06:46
Alkaline Phosphatase 317 U/L (38-126) H 05/06/23 06:46
Most recent labs reviewed.
Micro Results:
05/03/23 06:35 Blood Culture - Preliminary
Blood/Venous No Growth in 72 hours- Final report to follow
05/03/23 05:08 Blood Culture - Preliminary
Blood/Venous No Growth in 72 hours- Final report to follow
05/02/23 16:20 Anaerobic Culture - Preliminary
Abscess Culture pending. Anaerobic cultures are examined after 3
days incubation. Additional information to follow.
05/01/23 23:20 Salmonella/Shigella Culture - Final
Feces/Stool No Salmonella, Shigella, Aeromonas or Plesiomonas species
isolated.
Campylobacter Culture - Final
No Campylobacter species isolated.
Shiga Toxin Test - Final
No E. coli Shiga Toxin 1 or 2 detected.
Stool Leukocytes - Final
05/02/23 16:20 Fungal Smear - Final
Abscess No yeast or fungal elements seen.
Fungal Culture - Preliminary
Culture in progress.
Positive cultures are reported as soon as detected.
Final report to follow in four to five weeks.
05/01/23 16:24 Blood Culture - Preliminary
Blood/Venous Bacteroides Caccae
Gram Stain - Preliminary
05/01/23 16:24 Blood Culture - Preliminary
Blood/Venous Bacteroides Caccae
Gram Stain - Preliminary
05/02/23 16:20 Wound Culture - Preliminary
Abscess Escherichia coli
Group F Streptococcus
Gram Stain - Preliminary
05/01/23 23:20 C. difficile GDH Antigen & Toxins - Final
Feces/Stool Negative for toxigenic C.difficile
05/01/23 13:08 Influenza Types A & B (RADHA) - Final
Nasal Swab Negative for Influenza A & B, NAAT
Negative results must be combined with clinical observations
and patient history.
Nucleic Acid Amplification test (NAAT)performed on the
[employer] platform.
05/01/23 CT a/p with IV and oral contrast: LARGE 9.7 cm HEPATIC ABSCESS in the left lobe of the liver. LARGE PARAESOPHAGEAL HIATAL HERNIA with mesentero-axial positioning of the stomach in the hernia sac. Very severe diverticulosis in the sigmoid
colon.
05/01/23 CXR: There is a large retrocardiac air-fluid level to the left of midline, the differential includes a large hiatal hernia versus a large left Bochdalek hernia.
Care Review
Plan reviewed with: Physician (Dr. Cortez)
[2023-05-06 11:10] VITALS: BP 151/80
--- NOTE | 2023-05-06 13:48 | W.DS.TRANS ---
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
-
Discharge Instructions:
Discharge Diagnosis/Procedures hepatic abscess
Diet Regular
Activity As tolerated
Driving Restrictions As prior to admission
Bathing Restrictions None
Instructions:
Stand-Alone Forms:
Changes to Home Medications: Yes
Discharge Medications:
DC Medications w/original date entered in [facility]
losartan 50 mg PO DAILY Blood Pressure 05/01/23
Lactobac/Bifidobac [Visbiome] 1 cap PO DAILY ##0 05/06/23
cefuroxime axetil 500 mg tablet 500 mg PO BID #40 tabs 05/06/23
metronidazole 500 mg tablet 500 mg PO TID #60 tabs 05/06/23
Home Medication Changes
addition of cefuroxime and flagyl
Pending Results: No
[2023-05-06] MEDS: STERILE WATER FOR INJECTION 10 ML IV (15:02)
[2023-05-06] MEDS: ROCEPHIN 1000 MG IV (15:02)
--- NOTE | 2023-05-06 15:12 | CM ---
Patient is for discharge today, patient has been set up with [facility]. Daily flushes for drain.
Plan; Home with [facility], spouse to transport patient.
--- NOTE | 2023-05-06 15:22 | W.DCSUMMARY ---
Discharge Summary
Discharge Data
Date of Admission: 05/01/23
Date of Discharge: 05/06/23
-
Pending Results: No
Hospital Course
Discharging Physician : Dr. Lillie Cortez
Disposition : Home with Home Health
Primary care physician : Dr. Yahaira Morgan
Principal Discharge diagnosis : Hepatic Abscess, Bacteroides Bacteremia
Hospital Course :
Ms. Jessica Barrios is a 82 yo woman with hx HTN presents to the ER with weakness, and chills found to be febrile to 101. Labs significant for WBC 21.6, Hg 9.7, Na 128, Cr 1.2, lactate 2.6, T. Bili 1, AST 207, ALT 107, Alk PHos 336. CT with finding of
a large hepatic abscess. She was admitted to ICU for severe sepsis 2/2 hepatic abscess with need for initiation of levophed overnight. She was admitted to medicine with Statistical Clerk Advertising, ID and IR consulting. She underwent hepatic abscess drain
placement on hospital day 1. Cultures from abscess show E. Coli and Group F strep. Blood cultures showed Bacteroides. Patient was initially on cefepime/flagyl weaned to ceftriaxone/flagyl. Her levophed was weaned off. On 05/[address] showed
improvement in abscess (see below). Plan is to DC with NOAH drain in place (45 cc out over past 24 hours). She will follow up with IR and ID as outpatient. She is discharged on 20 more days of flagyl and cefuroxime.
Unclear etiology of hepatic abscess. Recommend colonoscopy as outpatient, patient aware and GI referral placed.
Time spent on discharge was 40 minutes.
Important imaging findings :
CT Abd/pel W Iv And Oral ContrAST 05/01/23
1. � LARGE 9.7 cm HEPATIC ABSCESS in the left lobe of the liver.
2. � Mild hepatosplenomegaly.
3. � LARGE PARAESOPHAGEAL HIATAL HERNIA with mesentero-axial positioning of the stomach in the hernia sac.
4. � Very severe diverticulosis in the sigmoid colon.
5. � Mild cardiomegaly.
CT A/P 05/06/23
IMPRESSION:
1. Significantly decreased size of the left lobe hepatic abscess status post percutaneous drainage catheter placement. Suspected small collection in the left lobe further inferiorly, difficult to tell if adjacent to or contiguous with the primary
abscess.
2. Large hiatal hernia.
3. Colonic diverticulosis.
4. Small bilateral pleural effusions.
Procedure findings :
Discharge Plan
-
Patient Disposition: Home with Home Care
Discharge Diagnosis/Procedures: hepatic abscess
Diet: Regular
Activity: As tolerated
Driving Restrictions: As prior to admission
Bathing Restrictions: None
Activity Restrictions/Additional Instructions:
Drain tube as needed and record output every 24 hours.
Please schedule a colonoscopy with GI for further evaluation of risk factors for developing this abscess.
Take Cefuroxime 500mg twice a day and Flagyl 500mg 3x/day x 20 more days. It is very important that you do not drink alcohol while taking Flagyl (Metronidazole). Metronidazole can cause an unpleasant reaction when taken with alcohol. The reaction
includes flushing, headache, nausea, vomiting, sweating, and increased thirst. The reaction can last from 30 min to several hours.
Referrals:
Mega Herman MD [Active] - in one week
Fermín Sanchez MD [Active] - in four to six weeks (for colonoscopy )
Yahaira Morgan MD [Family Provider] - in less than 1 week
Dianna Winters MD [Active] - in two weeks
Prescriptions:
New
metronidazole 500 mg Tablet
500 mg PO TID Qty: 60 0RF
Lactobac/Bifidobac [Visbiome]
1 cap PO DAILY Qty: 0 0RF
cefuroxime axetil 500 mg tablet
500 mg PO BID Qty: 40 0RF
Continued
losartan
50 mg PO DAILY
Discharge Orders:
Discharge Patient (As Directed); Ordered 05/06/23
Ordered By: Lillie Cortez
--- NOTE | 2023-05-06 16:00 | VNURNOTE ---
Home Health Liaison met with patient and spouse Tito at 1510 to discuss [facility] nurse/therapy, visits, schedule and homebound status. Patient is agreeable and understands that visits at home will be 2-3 x per week to assess and teach medical
management and perc drain care.
[facility] brochure provided with contact information. Patient is aware that [facility] will contact her for start of care in 1-2 days after discharge from .
[facility] referral completed in [facility].
Rx for NSS flushes obtained from Dr Cortez.
== END 2023-05-06 16:14 | disposition home health service (06) | DRG 871 ==
LOC: 4 WEST ACU 21:54
PROVIDERS: Clinical Nurse Specialist Family Health; Emergency Medicine; Internal Medicine Critical Care Medicine; Nurse Practitioner Family; Radiology Diagnostic Radiology; ADMITTING PHYSICIAN Internal Medicine; ATTENDING PHYSICIAN Student in an Organized Health Care Education/Training Program; CONSULT PHYSICIAN Internal Medicine; EMERGENCY PHYSICIAN Emergency Medicine; FAMILY PHYSICIAN Internal Medicine; OTHER PHYSICIAN Internal Medicine Critical Care Medicine; OTHER PHYSICIAN Internal Medicine Infectious Disease
PROC: 0FB23ZX Excision of Left Lobe Liver, Percutaneous Approach, Diagnostic (ICD-10-PCS; 2023-05-02)
PROC: 0F9230Z Drainage of Left Lobe Liver with Drainage Device, Percutaneous Approach (ICD-10-PCS; 2023-05-02)
DX: A41.9 Sepsis, unspecified organism (principal); K75.0 Abscess of liver; N17.0 Acute kidney failure with tubular necrosis; R65.21 Severe sepsis with septic shock; E87.1 Hypo-osmolality and hyponatremia; E87.20 Acidosis, unspecified; I10 Essential (primary) hypertension; K57.30 Diverticulosis of large intestine without perforation or abscess without bleeding; D75.838 Other thrombocytosis; D63.8 Anemia in other chronic diseases classified elsewhere; F10.10 Alcohol abuse, uncomplicated; Z11.52 Encounter for screening for COVID-19
CPT/HCPCS: 49405; 71045; 71046; 74177; 76942; 80048; 80053; 81003; 81015; 82010; 82077; 82533; 82550; 82570; 82607; 82728; 82746; 82977; 83540; 83550; 83605; 83735; 83880; 83930; 83935; 84100; 84145; 84300; 84443; 84484; 85018; 85025; 85045; 85610; 85730; 87040; 87045; 87046; 87070; 87075; 87076; 87077; 87102; 87147; 87149; 87185; 87186; 87205; 87206; 87324; 87427; 87449; 87502; 87811; 89055; 93005; 93306; 96360; 97163; 97165; 97530; 99285; Q9967

== ENCOUNTER → 2023-05-12 10:19 | Outpatient (REF) | payer OTHER, SELFPAY ==
[2023-05-12 10:55] VITALS: BP 172/83; BP_SYST 99
[2023-05-12 11:30] VITALS: BP 162/87
== END ==
LOC: RADI 10:19
PROVIDERS: ATTENDING PHYSICIAN Radiology Vascular & Interventional Radiology; FAMILY PHYSICIAN Internal Medicine
DX: Z46.82 Encounter for fitting and adjustment of non-vascular catheter (principal); K75.0 Abscess of liver
CPT/HCPCS: 49424; 76080

== ENCOUNTER → 2023-05-18 11:21 | Outpatient (REF) | payer OTHER, SELFPAY ==
[2023-05-18 12:07] LABS: % Basophils 1.2 % (0-2); % Eosinophils 1.1 % (0-6); % Immature Granulocytes 0.3 % (0-0.5); % Lymphocytes 14.6 % (20.5-51.1); % Monocytes 7.1 % (1.7-9.3); % Neutrophils 75.7 % (42.2-75.2); Absolute Basophils 0.1 10^3/uL (0-0.2); Absolute Eosinophils 0.1 10^3/uL (0-0.7); Absolute Lymphocytes 1.1 10^3/uL (1.2-3.4); Absolute Monocytes 0.5 10^3/uL (0.1-0.6); Absolute Neutrophils 5.5 10^3/uL (1.4-6.5); Hematocrit 32.3 % (37.0-47.0); Hemoglobin 10.8 g/dL (12.0-16.0); Mean Corp Hgb Conc. 33.4 g/dL (33.0-37.0); Mean Corpuscular Hgb 28.2 pg (27.0-31.0); Mean Corpuscular Volume 84.3 fL (81.0-99.0); Mean Platelet Volume 9.5 fL (7.4-10.4); Nucleated Red Blood Cells % 0 %; Platelet Count 298 10^3/uL (130-400); Red Blood Cell Count 3.83 10^6/uL (4.20-5.40); Red Cell Dist. Width 16.9 % (11.5-14.5); White Blood Cell Count 7.3 10^3/uL (4.8-10.8)
== END ==
LOC: REG 11:21
PROVIDERS: ATTENDING PHYSICIAN Internal Medicine Infectious Disease; FAMILY PHYSICIAN Internal Medicine
DX: K75.0 Abscess of liver (principal)
CPT/HCPCS: 36415; 85025

== ENCOUNTER → 2023-12-09 10:13 | Outpatient (REF) | payer OTHER, SELFPAY ==
[2023-12-09 11:15] LABS: % Basophils 1.2 % (0-2); % Eosinophils 4.6 % (0-6); % Immature Granulocytes 0.2 % (0-0.5); % Lymphocytes 27.8 % (20.5-51.1); % Monocytes 8.9 % (1.7-9.3); % Neutrophils 57.3 % (42.2-75.2); Absolute Basophils 0.1 10^3/uL (0-0.2); Absolute Eosinophils 0.3 10^3/uL (0-0.7); Absolute Lymphocytes 1.6 10^3/uL (1.2-3.4); Absolute Monocytes 0.5 10^3/uL (0.1-0.6); Absolute Neutrophils 3.4 10^3/uL (1.4-6.5); Hematocrit 40.9 % (37.0-47.0); Hemoglobin 13.7 g/dL (12.0-16.0); Mean Corp Hgb Conc. 33.5 g/dL (33.0-37.0); Mean Corpuscular Hgb 28.5 pg (27.0-31.0); Mean Corpuscular Volume 85.2 fL (81.0-99.0); Nucleated Red Blood Cells % 0 %; Platelet Count 273 10^3/uL (130-400); Red Cell Dist. Width 15.2 % (11.5-14.5); White Blood Cell Count 5.9 10^3/uL (4.8-10.8)
[2023-12-09 11:57] LABS: ALT (SGPT) 22 U/L (0-35); AST (SGOT) 27 U/L (14-36); Albumin 4.2 g/dl (3.5-5.0); Alkaline Phosphatase 99 U/L (38-126); Blood Urea Nitrogen 18 mg/dl (7-17); Calcium 9.7 mg/dl (8.4-10.2); Carbon Dioxide 26 mmol/L (22-30); Chloride 103 mmol/L (98-107); Direct Bilirubin 0.2 mg/dl (0.0-0.4); Glucose 102 mg/dl (70-99); Iron 66 ug/dl (37-170); Potassium 4.4 mmol/L (3.5-5.1); Sodium 140 mmol/L (135-145); Total Bilirubin 0.7 mg/dl (0.2-1.3); Total Protein 6.8 g/dl (6.3-8.2); eGFR > 60.00
[2023-12-09 12:06] LABS: Percent Saturation 18 % (20-50); Total Iron Binding Capacity 362 ug/dl (265-497)
[2023-12-09 12:29] LABS: Ferritin 11.3 ng/ml (11.1-264.0)
== END ==
LOC: REG 10:13
PROVIDERS: ATTENDING PHYSICIAN Internal Medicine Gastroenterology; FAMILY PHYSICIAN Internal Medicine
DX: K75.0 Abscess of liver (principal)
CPT/HCPCS: 36415; 80053; 82248; 82728; 83540; 83550; 85025

== ENCOUNTER 2023-12-18 08:43 | Emergency (ER) | payer OTHER, SELFPAY ==
[2023-12-18 08:46] VITALS: BP 142/97
[2023-12-18 09:43] LABS: Urine Albumin Trace (Neg - Trace); Urine Bilirubin Negative (Negative); Urine Character Clear (Clear); Urine Color Yellow; Urine Glucose Negative (Negative); Urine Ketone Negative (Negative); Urine Leukocyte Trace (Negative); Urine Nitrite Negative (Negative); Urine Occult Blood Negative (Negative); Urine Specific Gravity 1.015 (<1.030); Urine Urobilinogen Negative (Neg - 1+)
--- NOTE | 2023-12-18 09:46 | ED.GENMED ---
History of Present Illness
General
Chief Complaint: Back Pain
Time Seen by Provider: 12/18/23 09:12
History of Present Illness
History of Present Illness:
89-year-old female with history of hypertension presenting to the emergency department for back pain. Patient reports lower back pain for the past 3 days. Denies known inciting injury or trauma, however symptoms did start after she was golfing the
day prior. Pain is in the lower lumbar region of her back. Denies fever. Denies numbness or tingling to her legs. Denies radiation of pain to her abdomen. She has been taking Advil and using a heating pack which has been helping her symptoms.
She took Advil prior to arrival. She denies any issues with urination. She denies any issues with her back in the past. Pain is worse at nighttime. She denies additional acute medical complaints.
Phy Exam
Physical Exam
Physical Exam:
General: Well-appearing, no clinical signs of dehydration, nontoxic and in no acute distress
HEENT: protecting airway
Neck: appears supple
CV: Normal heart rate, regular rhythm, no evidence of cyanosis
Resp: No accessory muscle use, no increased work of breathing, lungs clear to auscultation bilaterally
Abd: Soft and non-distended, no tenderness to palpation
Extremities: No deformities, no swelling, no erythema, pulses and sensation intact. No focal tenderness to the back or midline spine. No rashes or overlying skin changes. Range of motion intact.
Neuro: alert, no focal neurologic deficit
: deferred
Rectal: deferred
Psych: Normal affect
Skin: Intact
Course
Orders/Labs/Results
Orders:
Orders
12/18/23 09:36
Urinalysis Reflex To Culture Urgent
Date Specimen was Collected: 12/18/23
Time Specimen was Collected: 09:34
Urine Microscopic Reflex Cult Urgent
12/18/23 09:40
CR Lumbar Spine Comp Min 4 Vw* Urgent
Comment:
Reason For Exam: pain x 3 days
Abnormal Lab Results
12/18/23
09:36
Leukocyte Esterase Rfl Trace A
(Negative)
Urine Bacteria (Reflex) Few A
(Negative)
Vital Signs
Initial and Last Documented VS:
Initial Vital Signs
Temp Pulse BP Pulse Ox
98 F 97 142/97 99
12/18/23 08:46 12/18/23 08:46 12/18/23 08:46 12/18/23 08:46
Last Documented Vital Signs
Temp Pulse BP Pulse Ox
98 F 97 142/97 99
12/18/23 08:46 12/18/23 08:46 12/18/23 08:46 12/18/23 08:46
MDM/Problems Addressed
MDM/Problems Addressed:
83-year-old female with history of hypertension presenting to the emergency department for lower back pain. Vital signs are normal.
On exam, patient is well-appearing, no acute distress or discomfort. Notes that her pain is currently gone after taking ibuprofen prior to arrival. Unable to reproduce pain currently. No concerning features on exam. Patient denies any direct
trauma, no midline tenderness to lower suspicion for fracture or malalignment. No fever or systemic symptoms, lower suspicion for infectious pathology. No red flags such as bowel or bladder incontinence, weakness or sensory deficits to
extremities, without concern for spinal compression. Suspected musculoskeletal quality to patient's pain, muscle spasming. Will screen with urinalysis to ensure no hematuria. Will also screen with x-ray imaging of the lumbar spine.
11:40 -patient's x-ray without acute fracture or malalignment. Urine without sign of blood. Small amount of leukocytes, however patient without urinary symptoms. On reassessment with pain controlled. Continue to suspect musculoskeletal pain and
spasm. Will prescribe cyclobenzaprine. However, patient cautioned against somnolence, advised taking it before bedtime. Advised continued use of pain patches as needed. Also advised follow-up with PCP for potential PT referral if symptoms
persist. Tricked return precautions communicated and patient verbalized understanding
*Critical Care Note
Total Time (30-74mins, 75-104mins- exclusive of procedures): Not Applicable
ED Attending Note
-
Portions of this chart may have been created with voice recognition software.� Occasional wrong word or��sound alike� substitutions may have occurred due to the inherent limitations of voice recognition software.
Discharge Plan
Departure
Prescriptions:
No Action
losartan
50 mg PO DAILY
metronidazole 500 mg Tablet
500 mg PO TID Qty: 60 0RF
Lactobac/Bifidobac [Visbiome]
1 cap PO DAILY Qty: 0 0RF
cefuroxime axetil 500 mg tablet
500 mg PO BID Qty: 40 0RF
Referrals:
Dejuan Valera, DO [Family Provider] -
Interventions
Interventions:
*Risk Screen - Suicide Last Done: 12/18/23 09:20
*Neglect/Abuse Screening Last Done: 12/18/23 09:20
ED-Musculoskeletal Assessment Last Done: 12/18/23 09:20
Discharge Date and Time
Print Language: SYRIAN
[2023-12-18 09:52] LABS: Urine Squamous Cell 21-25 /LPF (Few)
[2023-12-18 09:53] LABS: Urine Bacteria Few (Negative); Urine Red Blood Cell 0-2 /HPF (0-2)
== END 2023-12-18 12:00 | disposition home or self-care (01) ==
LOC: EMR 08:43
PROVIDERS: EMERGENCY PHYSICIAN Student in an Organized Health Care Education/Training Program; FAMILY PHYSICIAN Internal Medicine
DX: M54.50 Low back pain, unspecified (principal); M62.830 Muscle spasm of back; I10 Essential (primary) hypertension
CPT/HCPCS: 99283; 72110; 81003; 81015

== ENCOUNTER → 2024-01-26 09:15 | Outpatient (REF) | payer OTHER, SELFPAY | LOC: MRI 3T 09:15 | PROVIDERS: ATTENDING PHYSICIAN Internal Medicine Gastroenterology; FAMILY PHYSICIAN Internal Medicine | DX: K75.0 Abscess of liver (principal) | CPT/HCPCS: 74183; A9575 ==

== ENCOUNTER → 2024-03-02 13:38 | Outpatient (REF) | payer OTHER, SELFPAY | LOC: WDC 13:38 | PROVIDERS: ATTENDING PHYSICIAN Internal Medicine | DX: Z12.31 Encounter for screening mammogram for malignant neoplasm of breast (principal) | CPT/HCPCS: 77063; 77067 ==

== ENCOUNTER → 2025-03-26 10:16 | Outpatient (REF) | payer OTHER, SELFPAY | LOC: WDC 10:16 | PROVIDERS: ATTENDING PHYSICIAN Internal Medicine | DX: Z12.31 Encounter for screening mammogram for malignant neoplasm of breast (principal) | CPT/HCPCS: 77063; 77067 ==